=== PATIENT | female | born 1945 | race Caucasian/White ===

== ENCOUNTER 2022-06-21 20:02 | Inpatient (IN) | payer OTHER ==
[~2022-06-21] VITALS: Ht 149.9 cm; Wt 78.0 kg
[2022-06-21 22:13] LABS: Basophils # (auto) 0.1 10 ^3/uL (0-0.2); Basophils % (auto) 0.4 % (0.0-2.0); Eosinophils # (auto) 0.2 10 ^3/uL (0-0.8); Eosinophils % (auto) 0.8 % (0.0-7.0); Hematocrit 38.7 % (36.0-46.0); Hemoglobin 12.3 g/dL (12.2-16.2); Lymphocytes % (auto) 10.3 % (10.0-50.0); Mean Corpuscular Hemoglobin 26.4 pg (28.0-32.0); Mean Corpuscular Hgb Conc. 31.7 g/dL (32.0-36.0); Mean Corpuscular Volume 83.5 fL (80.0-100.0); Monocytes # (auto) 0.7 10 ^3/uL (0-1.3); Monocytes % (auto) 3.8 % (0.0-12.0); Neutrophils # (auto) 16.6 10 ^3/uL (1.6-8.6); Neutrophils % (auto) 84.7 % (37.0-80.0); Nucleated Red Blood Cells % 0.1 %; Red Blood Cells 4.64 10^6/uL (4.0-5.20); Red Cell Distribution Width 15.1 % (11.8-14.3); White Blood Cell 19.6 10^3/uL (4.4-10.8)
[2022-06-21 22:24] LABS: Calcium 9.3 mg/dL (8.5-10.1); Potassium 4.2 mmol/L (3.5-5.1)
[2022-06-21 22:28] LABS: Albumin 3.3 g/dL (3.4-5.0); BUN/Creatinine Ratio 19.2
[2022-06-21 22:32] LABS: Urine Bacteria MANY /hpf (None Seen); Urine Blood TRACE /uL (Negative); Urine Mucus FEW (None Seen); Urine WBC 17 /hpf (0 - 5)
[2022-06-21 22:40] LABS: Bilirubin, Total 0.8 mg/dL (0.2-1.0); Total Protein 6.7 g/dL (6.4-8.2)
[2022-06-21] MEDS ORDERED: cefTRIAXone 1GM/50ML D5W 50 ML IV ONE (23:00)
[2022-06-21] MEDS ORDERED: PANTOPRAZOLE 80 MG in SODIUM CHL 0.9% 100 ML IV ONE (23:00)
[2022-06-21] MEDS ORDERED: PANTOPRAZOLE 40mg/50ML NS AE 50 ML IV ONE (23:00)
[2022-06-21] MEDS ORDERED: PANTOPRAZOLE 40 MG/10 ML VIAL INJ IV ONE (23:26)
[2022-06-22] MEDS ORDERED: NITROGLYCERIN 0.4 MG SL TAB SL PRN (02:30)
[2022-06-22] MEDS ORDERED: SODIUM CHLORIDE 0.9% 1,000 ML IV SCH (02:30)
[2022-06-22] MEDS ORDERED: MORPHINE SULFATE INJ 2 MG/ml SYRG IV PRN (02:30)
[2022-06-22] MEDS: ONDANSETRON HCL 4 MG/2 ML VIAL IV PRN ×3 (03:32→20:09)
[2022-06-22 05:04] LABS: Hematocrit 41.6 % (36.0-46.0); Hemoglobin 13.7 g/dL (12.2-16.2)
[2022-06-22 05:06] LABS: Lactic Acid w/Reflex 2.2 mmol/L (0.4-2.0)
[2022-06-22 05:37] LABS: INR 1.17 (0.9-1.15); Partial Thromboplastin Time 26.5 sec (24.6-33.4)
[2022-06-22] MEDS: metroNIDAZOLE 500MG/100ML 100 ML IV SCH ×3 (06:21→23:11)
[2022-06-22] MEDS: PANTOPRAZOLE 40 MG/10 ML VIAL INJ IV SCH ×2 (09:15→22:00)
[2022-06-22] MEDS: MORPHINE SULFATE INJ 2 MG/ml SYRG IV PRN ×2 (09:48→20:09)
[2022-06-22] MEDS ORDERED: FLUT110A INH (21:15)
[2022-06-22] MEDS ORDERED: OMEP20TA PO (21:15)
[2022-06-22] MEDS ORDERED: LISI2.5T47 PO (21:15)
[2022-06-22] MEDS ORDERED: ATOR20TA50 PO (21:15)
[2022-06-22] MEDS ORDERED: TIOTCAP IN (21:15)
[2022-06-22] MEDS ORDERED: SILD50TA42 PO (21:15)
[2022-06-22] MEDS ORDERED: ATE50T PO (21:15)
[2022-06-22 22:00] VITALS: BP 101/51
[2022-06-22] MEDS: cefTRIAXone 1GM/50ML D5W 50 ML IV SCH (23:10)
[2022-06-23] MEDS ORDERED: ALBUAER3 IN (01:20)
[2022-06-23 05:00] VITALS: BP 114/55
[2022-06-23 05:30] LABS: Basophils # (auto) 0 10 ^3/uL (0-0.2); Basophils % (auto) 0.3 % (0.0-2.0); Eosinophils # (auto) 0 10 ^3/uL (0-0.8); Eosinophils % (auto) 0.1 % (0.0-7.0); Hematocrit 32.3 % (36.0-46.0); Hemoglobin 10.7 g/dL (12.2-16.2); Lymphocytes % (auto) 22.3 % (10.0-50.0); Mean Corpuscular Hemoglobin 27.6 pg (28.0-32.0); Mean Corpuscular Hgb Conc. 33.3 g/dL (32.0-36.0); Monocytes # (auto) 0.9 10 ^3/uL (0-1.3); Monocytes % (auto) 10.5 % (0.0-12.0); Neutrophils # (auto) 5.9 10 ^3/uL (1.6-8.6); Neutrophils % (auto) 66.8 % (37.0-80.0); Red Blood Cells 3.89 10^6/uL (4.0-5.20); Red Cell Distribution Width 15.4 % (11.8-14.3); White Blood Cell 8.8 10^3/uL (4.4-10.8)
[2022-06-23 05:55] LABS: Albumin 2.6 g/dL (3.4-5.0); BUN/Creatinine Ratio 12.2; Calcium 8.5 mg/dL (8.5-10.1); Magnesium 1.9 mg/dL (1.6-2.6); Potassium 4.7 mmol/L (3.5-5.1)
[2022-06-23 05:57] LABS: Bilirubin, Total 0.8 mg/dL (0.2-1.0); Total Protein 5.6 g/dL (6.4-8.2)
[2022-06-23] MEDS: metroNIDAZOLE 500MG/100ML 100 ML IV SCH ×2 (06:01→14:32)
[2022-06-23 09:00] VITALS: BP 120/67
[2022-06-23] MEDS: PANTOPRAZOLE 40 MG/10 ML VIAL INJ IV SCH ×2 (09:28→21:41)
[2022-06-23] MEDS ORDERED: CLINIMIX PER PHARMACY 0 ML IV SCH (11:30)
[2022-06-23] MEDS: D5W/SOD CHLO 0.9% 1,000 ML IV SCH (11:41)
[2022-06-23 13:00] VITALS: BP 129/79
[2022-06-23] MEDS ORDERED: SODIUM BICARBONATE 8.4 % INJ 50ML VIAL IV ONE (13:00)
[2022-06-23 13:10] LABS: Urine Bacteria MOD /hpf (None Seen); Urine Blood 3+ /uL (Negative); Urine Budding Yeast LOADED /hpf (None Seen); Urine Hyaline Cast FEW /lpf (0 - 2); Urine Mucus FEW (None Seen); Urine Specific Gravity 1.017 (1.001-1.035); Urine WBC 32 /hpf (0 - 5)
[2022-06-23 13:17] LABS: Protein, Urine 243.4 mg/dL (0.0-11.9)
[2022-06-23 17:00] VITALS: BP 143/65
[2022-06-23] MEDS: InsuLIN REG 1unit/0.01ml Soln (100units/ml) SC SCH (17:32)
[2022-06-23] MEDS: ACCU-CHEK COMFORT CURVE STRIP VI SCH (17:32)
[2022-06-23] MEDS ORDERED: DEXTROSE (50%) 50ML SYRG IV SCH (18:00)
[2022-06-23] MEDS: CLINIMIX PER PHARMACY IV NR (20:38)
[2022-06-23] MEDS: cefTRIAXone 1GM/50ML D5W 50 ML IV SCH (21:42)
[2022-06-23] MEDS: metroNIDAZOLE 500 MG TAB PO SCH (21:42)
[2022-06-24] VITALS (7 sets, daily range): BP systolic 129–186; BP diastolic 69–79
[2022-06-24] MEDS: ACCU-CHEK COMFORT CURVE STRIP VI SCH ×4 (00:32→18:35)
[2022-06-24] MEDS: D5W/SOD CHLO 0.9% 1,000 ML IV SCH (03:55)
[2022-06-24] MEDS: MORPHINE SULFATE INJ 2 MG/ml SYRG IV PRN ×2 (04:04→22:12)
[2022-06-24 05:54] LABS: Basophils # (auto) 0 10 ^3/uL (0-0.2); Basophils % (auto) 0.5 % (0.0-2.0); Eosinophils # (auto) 0.3 10 ^3/uL (0-0.8); Eosinophils % (auto) 4.3 % (0.0-7.0); Hematocrit 30.1 % (36.0-46.0); Hemoglobin 9.9 g/dL (12.2-16.2); Lymphocytes # (auto) 1.7 10 ^3/uL (0.4-5.4); Lymphocytes % (auto) 22.7 % (10.0-50.0); Mean Corpuscular Hemoglobin 26.8 pg (28.0-32.0); Mean Corpuscular Hgb Conc. 32.9 g/dL (32.0-36.0); Mean Corpuscular Volume 81.6 fL (80.0-100.0); Monocytes # (auto) 0.6 10 ^3/uL (0-1.3); Monocytes % (auto) 8.2 % (0.0-12.0); Neutrophils # (auto) 4.7 10 ^3/uL (1.6-8.6); Neutrophils % (auto) 64.3 % (37.0-80.0); Red Blood Cells 3.69 10^6/uL (4.0-5.20); White Blood Cell 7.4 10^3/uL (4.4-10.8)
[2022-06-24] MEDS: InsuLIN REG 1unit/0.01ml Soln (100units/ml) SC SCH ×4 (06:00→18:35)
[2022-06-24 06:08] LABS: Potassium 3.7 mmol/L (3.5-5.1)
[2022-06-24 06:17] LABS: INR 1.03 (0.9-1.15); Partial Thromboplastin Time 29.8 sec (24.6-33.4)
[2022-06-24 06:23] LABS: Albumin 2.3 g/dL (3.4-5.0); BUN/Creatinine Ratio 14.8; Bilirubin, Total 0.6 mg/dL (0.2-1.0); Calcium 7.8 mg/dL (8.5-10.1); Magnesium 1.7 mg/dL (1.6-2.6); Phosphorus 2.8 mg/dL (2.5-4.90)
[2022-06-24] MEDS: metroNIDAZOLE 500 MG TAB PO SCH ×3 (06:57→21:42)
[2022-06-24] MEDS: PANTOPRAZOLE 40 MG/10 ML VIAL INJ IV SCH ×2 (09:09→22:10)
[2022-06-24] MEDS: SODIUM BICARB 50ML SYR 50 ML in D5W/SOD CHL 0.45% 1,000 ML IV SCH ×2 (11:51→23:44)
[2022-06-24] MEDS ORDERED: POTASSIUM PHOSPHATE 22 MEQ in SODIUM CHL 0.9% 100 ML IV ONE (13:00)
[2022-06-24] MEDS: MESALAMINE 400mg Delayed Release Cap PO SCH (21:43)
[2022-06-24] MEDS: methylPREDNISolone SOD SUCC 40 MG/ML VL IV SCH (22:10)
[2022-06-24] MEDS: cefTRIAXone 1GM/50ML D5W 50 ML IV SCH (22:11)
[2022-06-24] MEDS: CLINIMIX PER PHARMACY IV NR (23:44)
[2022-06-25] MEDS ORDERED: LABETALOL HCL 5 MG/ML 4ML SYRINGE IV ONE (01:15)
[2022-06-25 05:00] VITALS: BP 159/77
[2022-06-25] MEDS: SODIUM BICARB 50ML SYR 50 ML in D5W/SOD CHL 0.45% 1,000 ML IV SCH ×2 (05:45→14:36)
[2022-06-25] MEDS: ACCU-CHEK COMFORT CURVE STRIP VI SCH ×4 (06:00→17:27)
[2022-06-25] MEDS: methylPREDNISolone SOD SUCC 40 MG/ML VL IV SCH ×3 (06:59→23:02)
[2022-06-25] MEDS: metroNIDAZOLE 500 MG TAB PO SCH ×3 (06:59→22:59)
[2022-06-25] MEDS: MESALAMINE 400mg Delayed Release Cap PO SCH ×3 (06:59→23:01)
[2022-06-25] MEDS: InsuLIN REG 1unit/0.01ml Soln (100units/ml) SC SCH ×4 (07:13→17:27)
[2022-06-25 07:39] LABS: Albumin 2.4 g/dL (3.4-5.0); Potassium 3.6 mmol/L (3.5-5.1)
[2022-06-25 07:44] LABS: BUN/Creatinine Ratio 17.4; Bilirubin, Total 0.4 mg/dL (0.2-1.0); Magnesium 1.4 mg/dL (1.6-2.6); Phosphorus 2.2 mg/dL (2.5-4.90); Total Protein 5.4 g/dL (6.4-8.2)
[2022-06-25 08:35] VITALS: BP 164/73
[2022-06-25] MEDS: PANTOPRAZOLE 40 MG/10 ML VIAL INJ IV SCH ×2 (09:07→23:01)
[2022-06-25 12:31] VITALS: BP 168/78
[2022-06-25] MEDS ORDERED: ATENOLOL 50 MG TAB PO ONE (13:15)
[2022-06-25] MEDS ORDERED: POTASSIUM PHOSP 22MEQ(15MMOLE) in NS 100 ML IV ONE (16:00)
[2022-06-25] MEDS: MAGNESIUM SULFATE 1GM/100ML 100 ML IV SCH ×2 (16:18→17:15)
[2022-06-25 17:07] VITALS: BP 183/66
[2022-06-25] MEDS: hydrALAZINE HCL 20 MG/ML VL IV PRN (17:10)
[2022-06-25] MEDS: IPRATROPIUM BROM 0.5 MG/2.5ML INH SOL NEB SCH (19:33)
[2022-06-25] MEDS: ALBUTEROL SULF 2.5 MG/0.5ML(0.5%) NEB SOLN NEB SCH (19:33)
[2022-06-25 20:00] VITALS: BP 118/78
[2022-06-25] MEDS: CLINIMIX PER PHARMACY IV NR (20:58)
[2022-06-25 22:00] VITALS: BP 118/78
[2022-06-25] MEDS: cefTRIAXone 1GM/50ML D5W 50 ML IV SCH (23:01)
[2022-06-26] MEDS: InsuLIN REG 1unit/0.01ml Soln (100units/ml) SC SCH ×3 (00:11→12:07)
[2022-06-26] MEDS: ACCU-CHEK COMFORT CURVE STRIP VI SCH ×3 (00:17→12:05)
[2022-06-26] MEDS: SODIUM BICARB 50ML SYR 50 ML in D5W/SOD CHL 0.45% 1,000 ML IV SCH ×2 (04:10→17:30)
[2022-06-26 05:00] VITALS: BP 158/66
[2022-06-26 05:26] LABS: Basophils # (auto) 0 10 ^3/uL (0-0.2); Basophils % (auto) 0.1 % (0.0-2.0); Eosinophils # (auto) 0 10 ^3/uL (0-0.8); Hemoglobin 9.9 g/dL (12.2-16.2); Lymphocytes # (auto) 1.1 10 ^3/uL (0.4-5.4); Neutrophils # (auto) 11.9 10 ^3/uL (1.6-8.6)
[2022-06-26 05:29] LABS: Hematocrit 29.4 % (36.0-46.0); Lymphocytes % (auto) 7.8 % (10.0-50.0); Mean Corpuscular Hemoglobin 27.2 pg (28.0-32.0); Mean Corpuscular Hgb Conc. 33.7 g/dL (32.0-36.0); Mean Corpuscular Volume 80.7 fL (80.0-100.0); Monocytes # (auto) 0.5 10 ^3/uL (0-1.3); Monocytes % (auto) 3.6 % (0.0-12.0); Neutrophils % (auto) 88.5 % (37.0-80.0); Red Blood Cells 3.65 10^6/uL (4.0-5.20); Red Cell Distribution Width 14.6 % (11.8-14.3); White Blood Cell 13.5 10^3/uL (4.4-10.8)
[2022-06-26 05:42] LABS: Albumin 2.4 g/dL (3.4-5.0); Calcium 8.2 mg/dL (8.5-10.1); Potassium 3.6 mmol/L (3.5-5.1)
[2022-06-26 05:45] LABS: Magnesium 1.8 mg/dL (1.6-2.6); Phosphorus 1.8 mg/dL (2.5-4.90)
[2022-06-26] MEDS: IPRATROPIUM BROM 0.5 MG/2.5ML INH SOL NEB SCH ×3 (06:11→18:55)
[2022-06-26] MEDS: ALBUTEROL SULF 2.5 MG/0.5ML(0.5%) NEB SOLN NEB SCH ×3 (06:11→18:55)
[2022-06-26] MEDS: methylPREDNISolone SOD SUCC 40 MG/ML VL IV SCH ×3 (06:30→22:02)
[2022-06-26] MEDS: MESALAMINE 400mg Delayed Release Cap PO SCH ×3 (06:31→21:55)
[2022-06-26] MEDS: hydrALAZINE HCL 20 MG/ML VL IV PRN ×2 (06:31→17:30)
[2022-06-26] MEDS: metroNIDAZOLE 500 MG TAB PO SCH ×3 (06:31→21:55)
[2022-06-26] MEDS ORDERED: POTASSIUM PHOSPHATE 26.4 MEQ in SODIUM CHL 0.9% 100 ML IV ONE (08:00)
[2022-06-26 09:00] VITALS: BP 152/61
[2022-06-26] MEDS: PANTOPRAZOLE 40 MG/10 ML VIAL INJ IV SCH ×2 (09:23→22:01)
[2022-06-26] MEDS: ATENOLOL 50 MG TAB PO SCH (09:28)
[2022-06-26 13:05] VITALS: BP 156/69
[2022-06-26 16:26] VITALS: BP 170/84
[2022-06-26] MEDS: cefTRIAXone 1GM/50ML D5W 50 ML IV SCH (22:01)
[2022-06-26 22:09] VITALS: BP 142/73
[2022-06-27 04:58] VITALS: BP 157/76
[2022-06-27] MEDS: methylPREDNISolone SOD SUCC 40 MG/ML VL IV SCH ×2 (05:51→22:55)
[2022-06-27] MEDS: metroNIDAZOLE 500 MG TAB PO SCH ×3 (05:52→22:55)
[2022-06-27] MEDS: MESALAMINE 400mg Delayed Release Cap PO SCH ×3 (05:52→22:55)
[2022-06-27 06:02] LABS: Basophils # (auto) 0 10 ^3/uL (0-0.2); Basophils % (auto) 0.1 % (0.0-2.0); Eosinophils # (auto) 0 10 ^3/uL (0-0.8); Hematocrit 30.5 % (36.0-46.0); Hemoglobin 10.2 g/dL (12.2-16.2); Lymphocytes # (auto) 1.2 10 ^3/uL (0.4-5.4); Mean Corpuscular Hemoglobin 26.6 pg (28.0-32.0); Mean Corpuscular Hgb Conc. 33.4 g/dL (32.0-36.0); Mean Corpuscular Volume 79.4 fL (80.0-100.0); Monocytes # (auto) 0.9 10 ^3/uL (0-1.3); Monocytes % (auto) 7.2 % (0.0-12.0); Neutrophils # (auto) 10.1 10 ^3/uL (1.6-8.6); Neutrophils % (auto) 82.7 % (37.0-80.0); Red Blood Cells 3.84 10^6/uL (4.0-5.20); Red Cell Distribution Width 14.8 % (11.8-14.3); White Blood Cell 12.2 10^3/uL (4.4-10.8)
[2022-06-27] MEDS: ALBUTEROL SULF 2.5 MG/0.5ML(0.5%) NEB SOLN NEB SCH ×3 (06:24→19:46)
[2022-06-27] MEDS: IPRATROPIUM BROM 0.5 MG/2.5ML INH SOL NEB SCH ×3 (06:24→19:46)
[2022-06-27 06:43] LABS: Calcium 8.1 mg/dL (8.5-10.1); Potassium 3.5 mmol/L (3.5-5.1)
[2022-06-27 06:47] LABS: BUN/Creatinine Ratio 24.8; Magnesium 1.2 mg/dL (1.6-2.6); Phosphorus 2.4 mg/dL (2.5-4.90)
[2022-06-27] MEDS: SODIUM BICARB 50ML SYR 50 ML in D5W/SOD CHL 0.45% 1,000 ML IV SCH ×2 (07:36→16:01)
[2022-06-27 09:07] VITALS: BP 159/73
[2022-06-27] MEDS: ATENOLOL 50 MG TAB PO SCH (09:21)
[2022-06-27] MEDS: PANTOPRAZOLE 40 MG/10 ML VIAL INJ IV SCH ×2 (09:24→22:55)
[2022-06-27] MEDS: hydrALAZINE HCL 20 MG/ML VL IV PRN (09:25)
[2022-06-27] MEDS ORDERED: POTASSIUM PHOSPHATE 22 MEQ in SODIUM CHL 0.9% 100 ML IV ONE (10:15)
[2022-06-27] MEDS: MAGNESIUM SULFATE 1GM/100ML 100 ML IV SCH ×2 (11:22→13:34)
[2022-06-27 12:47] VITALS: BP 152/73
[2022-06-27 17:00] VITALS: BP 152/73
[2022-06-27 17:15] VITALS: BP 155/68
[2022-06-27 21:56] VITALS: BP 155/69
[2022-06-27] MEDS: cefTRIAXone 1GM/50ML D5W 50 ML IV SCH (22:55)
[2022-06-28 04:52] VITALS: BP 148/73
[2022-06-28 06:17] LABS: Basophils # (auto) 0 10 ^3/uL (0-0.2); Basophils % (auto) 0.2 % (0.0-2.0); Eosinophils # (auto) 0 10 ^3/uL (0-0.8); Eosinophils % (auto) 0.1 % (0.0-7.0); Hematocrit 29.2 % (36.0-46.0); Hemoglobin 10.1 g/dL (12.2-16.2); Lymphocytes % (auto) 9.8 % (10.0-50.0); Mean Corpuscular Hemoglobin 27.3 pg (28.0-32.0); Mean Corpuscular Hgb Conc. 34.5 g/dL (32.0-36.0); Mean Corpuscular Volume 79.1 fL (80.0-100.0); Monocytes # (auto) 1.3 10 ^3/uL (0-1.3); Monocytes % (auto) 12.4 % (0.0-12.0); Neutrophils # (auto) 7.8 10 ^3/uL (1.6-8.6); Neutrophils % (auto) 77.5 % (37.0-80.0); Red Blood Cells 3.69 10^6/uL (4.0-5.20); Red Cell Distribution Width 15.1 % (11.8-14.3); White Blood Cell 10.1 10^3/uL (4.4-10.8)
[2022-06-28] MEDS: metroNIDAZOLE 500 MG TAB PO SCH (06:28)
[2022-06-28] MEDS: MESALAMINE 400mg Delayed Release Cap PO SCH (06:28)
[2022-06-28 06:33] LABS: BUN/Creatinine Ratio 23.8; Calcium 7.9 mg/dL (8.5-10.1); Potassium 3.9 mmol/L (3.5-5.1)
[2022-06-28] MEDS: IPRATROPIUM BROM 0.5 MG/2.5ML INH SOL NEB SCH (06:54)
[2022-06-28] MEDS: ALBUTEROL SULF 2.5 MG/0.5ML(0.5%) NEB SOLN NEB SCH (06:55)
[2022-06-28 08:52] VITALS: BP 159/73
[2022-06-28 09:00] VITALS: BP 169/80
[2022-06-28] MEDS: methylPREDNISolone SOD SUCC 40 MG/ML VL IV SCH (09:50)
[2022-06-28] MEDS: PANTOPRAZOLE 40 MG/10 ML VIAL INJ IV SCH (09:50)
[2022-06-28] MEDS: ATENOLOL 50 MG TAB PO SCH (09:51)
[2022-06-28] MEDS: hydrALAZINE HCL 20 MG/ML VL IV PRN (10:00)
[2022-06-28] MEDS ORDERED: MAGNESIUM SULFATE 1GM/100ML 100 ML IV SCH (10:00)
== END 2022-06-28 10:20 | disposition short-term general hospital (02) | DRG 391 ==
LOC: EDBD 20:02 → ER 20:04 → TELE 06-22 02:30 → TELE-WESTW 06-22 20:55
PROVIDERS: ADMIT Nurse Practitioner; ATTEND Internal Medicine
PROC: 05HA33Z Insertion of Infusion Device into Left Brachial Vein, Percutaneous Approach (ICD-10-PCS; principal; 2022-06-25)
PROC: B54NZZA Ultrasonography of Left Upper Extremity Veins, Guidance (ICD-10-PCS; 2022-06-25)
DX: K52.9 Noninfective gastroenteritis and colitis, unspecified (principal); N17.0 Acute kidney failure with tubular necrosis; E44.0 Moderate protein-calorie malnutrition; N30.00 Acute cystitis without hematuria; K62.5 Hemorrhage of anus and rectum; R65.10 Systemic inflammatory response syndrome (SIRS) of non-infectious origin without acute organ dysfunction; D64.9 Anemia, unspecified; E66.9 Obesity, unspecified; E78.5 Hyperlipidemia, unspecified; I12.9 Hypertensive chronic kidney disease with stage 1 through stage 4 chronic kidney disease, or unspecified chronic kidney disease; J44.9 Chronic obstructive pulmonary disease, unspecified; N18.9 Chronic kidney disease, unspecified; R97.0 Elevated carcinoembryonic antigen [CEA]; E11.65 Type 2 diabetes mellitus with hyperglycemia; E83.39 Other disorders of phosphorus metabolism; E83.42 Hypomagnesemia; Z68.33 Body mass index [BMI] 33.0-33.9, adult; Z88.2 Allergy status to sulfonamides; Z20.822 Contact with and (suspected) exposure to COVID-19; Z87.19 Personal history of other diseases of the digestive system
CPT/HCPCS: 36415; 36600; 70450; 71045; 74018; 74176; 76775; 80048; 80053; 80069; 81001; 82270; 82378; 82570; 82805; 82962; 83036; 83605; 83735; 83880; 83935; 84100; 84156; 84300; 84443; 84484; 85014; 85018; 85025; 85610; 85730; 86850; 86900; 86901; 87040; 87045; 87086; 87088; 87426; 87427; 87493; 93005; 94640; 96365; 96374; 96375; 97110; 97116; 97163; C9113; G0378; J0696; J1815; J2405; J3490; J7042

== ENCOUNTER 2025-03-02 04:29 | Inpatient (IN) | payer OTHER ==
[~2025-03-02] VITALS: Ht 165.1 cm; Wt 66.0 kg
[~2025-03-02 04:29] MED LIST: ALBUAER3 IN; ATE50T PO; ATOR20TA50 PO; FLUT110A INH; LISI2.5T47 PO; OMEP20TA PO; SILD50TA PO; TIOTCAP IN
--- NOTE | 2025-03-02 04:55 | ED.PDOC ---
GI ASSESSMENT HPI Comments 79 year old female who came to ER by EMS for nausea and vomiting. Per EMS, about an hour prior to arrival, sudden onset right lower quadrant abdominal pain, sharp, constant, nonradiating, associated episodes of nausea, vomiting, dizziness/lightheadedness. Blood pressure on scene was 53/33 mm Hg. Patient is started on IV fluids. Blood sugar on scene was 253 Chief Complaint: Nausea/Vomiting Time Seen by MD: 04:53 Reviewed Notes: All Purpose Clerk Notes Allergies: Coded Allergies: Sulfa Antibiotics (Verified Allergy, Unknown, 06/21/22) Home Meds Reported Medications Albuterol Sulfate (VENTOLIN MDI) 90 Mcg Ih, 90 MCG IN, INH 06/23/22 Fluticasone Propionate (FLOVENT HFA 110Mcg INH) 110 Mcg Ih, 2 PUFF INH BID, #1 INHALER 2 Refills 06/22/22 Atenolol (TENORMIN TABLET) 50 Mg Tb, 1 TAB PO DAILY, #30 TAB 5 Refills 06/22/22 Atorvastatin Calcium (ATORVASTATIN CALCIUM) 20 Mg Tab, 1 TAB PO DAILY, #30 TAB 5 Refills 06/22/22 Sildenafil Citrate (Viagra) 50 Mg Tab, 1 TAB PO UD, #6 TAB 5 Refills 06/22/22 Lisinopril (Lisinopril) 2.5 Mg Tab, 1 TAB PO DAILY, #30 TAB 5 Refills 06/22/22 Omeprazole (Gnp Omeprazole) 20 Mg Tab, 1 TAB PO DAILY, #90 TAB 1 Refill 06/22/22 Tiotropium Roland Monohydrate (Spiriva Handihaler) 18 Mcg Cap, 18 MCG IN, CAP 06/22/22 Information Source: Emergency Med Personnel Timing: Minutes Duration: Since onset Prehospital treatment: IVF Quality: Sharp Vomitus: Watery Stool: Normal Severity: Moderate Recent: None Recent Hx of: Abdominal Surgery Pain Location: RLQ Associated sign and symptoms: Nausea, Vomiting, Abdominal Pain Review of Systems REVIEW OF SYSTEMS: No fever, no chills, or fatigue HEENT: No sore throat, no earache, no congestion, no neck pain. Cardiac: No chest pain. No palpitations. Lungs: No shortness of breath, no cough. GI: (+) nausea, (+) vomiting, no diarrhea, no constipation, (+) abdominal pain : No dysuria, frequency, or urgency. No hematuria. Musculoskeletal: No joint pain , no joint swelling, no extremity edema. Skin: No rash, no itching. Neuro: No headache, (+) dizziness, no weakness Vital Signs Vital Signs Date Time Temp Pulse Resp B/P (MAP) Pulse Ox O2 Delivery O2 Flow Rate FiO2 03/02/25 06:09 57 15 94 Nasal Cannula* 3 32 03/02/25 06:08 104/57 (73) 03/02/25 05:21 97.8 97.8 Physical Exam General: Awake, alert , appears unwell Skin: Skin in warm, dry and intact. Appropriate color for ethnicity. Nailbeds pink with no cyanosis. HEENT: The head is normocephalic and atraumatic. Conjunctivae are clear without exudates or hemorrhage. Sclera is non-icteric. EOM are intact. No signs of nystagmus. Eyelids are normal in appearance without swelling or lesions. Oral mucosa is pink and moist Neck: The neck is supple with normal range of motion. No JVD. Cardiac: Heart rate and rhythm are normal. No murmurs, gallops, or rubs are auscultated. Respiratory: No signs of respiratory distress. Lung sounds are clear in all lobes bilaterally without rales, rhonchi, or wheezes. Abdominal: Abdomen is soft, +RLQ tender Bowel sounds are present and normoactive in all four quadrants. Extremities: Upper and lower extremities are atraumatic in appearance without deformity or edema. Neurological: The patient is awake, alert and oriented to person, place, and time with normal speech. Speech is clear. There is no facial asymmetry. Psychiatric: Appropriate mood and affect. Good judgement and insight. 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 Was a procedure done?: No GI differential Dx Differential Diagnosis: Cholecystitis, Constipation, Diverticular disease, Gastritis/PUD, Gastroenteritis, Hernia, Ovarian cyst/torsion, UTI, Urolithiasis, Anemia X-Ray, Labs, Meds, VS Vital Signs Date Time Temp Pulse Resp B/P (MAP) Pulse Ox O2 Delivery O2 Flow Rate FiO2 03/02/25 06:09 57 15 94 Nasal Cannula* 3 32 03/02/25 06:08 60 104/57 (73) 100 03/02/25 05:21 97.8 57 15 97/35 (55) 93 97.8 03/02/25 05:14 56 03/02/25 04:40 98.2 73 20 55/33 (40) 97 98.2 Lab Test 03/02/25 07:34 03/02/25 05:54 03/02/25 05:44 Range/Units Lactic Acid Level Pending 5.9 *H 0.4-2.0 mmol/L Troponin I High Sensitivity Pending 38 *H </=34 ng/L White Blood Count 17.7 H 4.4-10.8 10^3/uL Red Blood Count 4.47 4.0-5.20 10^6/uL Hemoglobin 10.4 L 12.2-16.2 g/dL Hematocrit 35.2 L 36.0-46.0 % Mean Corpuscular Volume 78.6 L 80.0-100.0 fL Mean Corpuscular Hemoglobin 23.2 L 28.0-32.0 pg Mean Corpuscular Hemoglobin Concent 29.5 L 32.0-36.0 g/dL Red Cell Distribution Width 16.6 H 11.8-14.3 % Platelet Count 252 140-450 10^3/uL Mean Platelet Volume 8.1 6.9-10.8 fL Neutrophils (%) (Auto) 37.0-80.0 % Lymphocytes (%) (Auto) 10.0-50.0 % Monocytes (%) (Auto) 0.0-12.0 % Basophils (%) (Auto) 0.0-2.0 % Neutrophils # (Auto) 1.6-8.6 10 ^3/uL Lymphocytes # (Auto) 0.4-5.4 10 ^3/uL Monocytes # (Auto) 0-1.3 10 ^3/uL Differential Total Cells Counted 100.0 100 Neutrophils % (Manual) 93 H 37.0-80.0 Band Neutrophils % (Manual) 1 Lymphocytes % (Manual) 5 L 10.0-50.0 Monocytes % (Manual) 1 0-12 Eosinophils % (Manual) 0 0-7 Basophils % (Manual) 0 0.0-2.0 Metamyelocytes % (manual) 0 Myelocytes % (Manual) 0 Promyelocytes % (Manual) 0 Blast Cells % (Manual) 0 Reactive Lymphocytes 0 Platelet Estimate Adequate Hypochromasia (manual) Slight Microcytosis Slight Sodium Level 140 136-145 mmol/L Potassium Level 4.4 3.5-5.1 mmol/L Chloride Level 110 H 98-107 mmol/L Carbon Dioxide Level 15 L 20-31 mmol/L Anion Gap 15 5-15 Blood Urea Nitrogen 26 H 9-23 mg/dL Creatinine 1.84 H 0.550-1.02 mg/dL Glomerular Filtration Rate Calc 27 >90 mL/min BUN/Creatinine Ratio 14.1 10.0-20.0 Serum Glucose 171 H 74-106 mg/dL Calcium Level 9.4 8.7-10.4 mg/dL Total Bilirubin 0.7 0.2-1.0 mg/dL Aspartate Amino Transferase (AST) 24 0-34 U/L Alanine Aminotransferase (ALT) < 9 7-40 U/L Alkaline Phosphatase 390 H 46-116 U/L Total Protein 7.1 5.7-8.2 g/dL Albumin 3.8 3.2-4.8 g/dL Lipase 78 H 12-53 U/L Current Medications Medications (Trade) Dose Ordered Sig/Sara Route Start Time Stop Time Status Last Admin Sodium Chloride 1,000 ml @ 1,000 mls/hr Q1H ONCE IV 03/02/25 04:45 03/02/25 05:44 DC 03/02/25 05:14 EXAM: CT Abdomen and Pelvis Without Intravenous Contrast CLINICAL INDICATION: Pain TECHNIQUE: Axial computed tomography images of the abdomen and pelvis without intravenous contrast. This CT exam was performed using one or more of the following dose reduction techniques: automated exposure control, adjustment of the mA and/or kV according to patient size, and/or use of iterative reconstruction technique. COMPARISON: No relevant prior studies available. FINDINGS: LUNG BASES: Unremarkable. No mass. No consolidation. MEDIASTINUM: Small esophageal hiatal hernia. ABDOMEN: LIVER: Fatty infiltration of the liver. GALLBLADDER AND BILE DUCTS: Unremarkable. No calcified stones. No ductal dilation. PANCREAS: Unremarkable. No ductal dilation. SPLEEN: Unremarkable. No splenomegaly. ADRENALS: Unremarkable. No mass. KIDNEYS AND URETERS: Punctate left nephrolithiasis without hydronephrosis. STOMACH AND BOWEL: Fecal retention in the colon consistent with constipation. Evidence of prior gastric surgery. Colonic diverticulosis without acute diverticulitis. PELVIS: APPENDIX: No findings to suggest acute appendicitis. BLADDER: Unremarkable. No stones. REPRODUCTIVE: Unremarkable as visualized. ABDOMEN and PELVIS: INTRAPERITONEAL SPACE: See below. BONES/JOINTS: Mildly distended small bowel with air-fluid levels. Correlation for arthritis is recommended. No bowel obstruction or pneumoperitoneum. Degenerative disc disease throughout the lumbar spine. Degenerative facet arthropathy throughout the lumbar spine, most prominent in the lower lumbar spine. No acute fracture. No dislocation. SOFT TISSUES: Unremarkable. VASCULATURE: Scattered calcified atherosclerotic disease of aorta. No abdominal aortic aneurysm. LYMPH NODES: Unremarkable. No enlarged lymph nodes. IMPRESSION: 1. Mildly distended small bowel with air-fluid levels. Correlation for arthritis is recommended. No bowel obstruction or pneumoperitoneum. 2. Small esophageal hiatal hernia. 3. Fecal retention in the colon consistent with constipation. 4. Punctate left nephrolithiasis without hydronephrosis. 5. Colonic diverticulosis without acute diverticulitis. 6. Degenerative changes lumbar spine as described. EXAM: XR Chest, 1 View CLINICAL INDICATION: Pain TECHNIQUE: Frontal view of the chest. COMPARISON: No relevant prior studies available. FINDINGS: LUNGS AND PLEURAL SPACES: Unremarkable. No consolidation. No pneumothorax. HEART: Unremarkable. No cardiomegaly. MEDIASTINUM: Unremarkable. Normal mediastinal contour. BONES/JOINTS: Unremarkable. No acute fracture. IMPRESSION: No acute cardiopulmonary process. Time of 1ST Reevaluation: 04:50 Reevaluation 1ST: Unchanged Patient Education/Counseling: Prognosis Family Education/Counseling: No Family Present Sepsis Sepsis Reasesment Focused Exam Orders: Laboratory Tests 03/02/25 05:44: Lactic Acid Level 5.9 03/02/25 07:34: Departure 1 Departure Time of Disposition: 08:07 ([facility] authorization to admit here [id number]. Discussed with Dr. Molina at [facility] who agreed that patient is unstable for transfer.Patient with concern for sepsis. We will empirically cover patient with antibiotics fluids and admit patient for further workup and expert consultation) Impression: Primary Impression: Sepsis Qualified Codes: A41.9 - Sepsis, unspecified organism; R65.21 - Severe sepsis with septic shock; G72.81 - Critical illness myopathy Additional Impression: Colitis Disposition: ADMITTED INPATIENT Admit to: Med Surg Condition: Serious Critical Care Note Critical Care Time?: Yes Critical care comment: Hypotension, hyperglycemia Authorized and Performed by: Pj Clancy MD Total critical care time: Approximately 78 minutes Due to a high probability of clinically significant, life threatening deterioration, the patient required my highest level of preparedness to intervene emergently and I personally spent this critical care time directly and personally managing the patient. This critical care time included obtaining a history; examining the patient; pulse oximetry; ordering and review of studies; arranging urgent treatment with development of a management plan; evaluation of patient's response to treatment; frequent reassessment; and, discussions with other providers. This critical care time was performed to assess and manage the high probability of imminent, life-threatening deterioration that could result in multi-organ failure. It was exclusive of separately billable procedures and treating other patients and teaching time. Please see my other sections and the rest of the note for further information on patient assessment and treatment. Stability Stability form required: No Heart Score Heart Score: Heart Score Response (Comments) Value History N/A 0 EKG N/A 0 Age N/A 0 Risk Factors N/A 0 Troponin N/A 0 Total 0 I personally scribed for TANNER NELSON MD ([email or web address]) on 03/02/25 at 04:55. Electronically submitted by Thierry Marquez ([email or web address]). I personally scribed for TANNER NELSON MD ([email or web address]) on 03/02/25 at 06:01. Electronically submitted by Thierry Marquez ([email or web address]). TANNER NELSON MD Mar 02, 2025 04:55 PJ CLANCY MD Mar 02, 2025 08:09
[2025-03-02] MEDS: SODIUM CHLORIDE 0.9% 1,000 ML IV ONE ×4 (05:14→11:21)
--- NOTE | 2025-03-02 05:42 | DVH ---
EXAM: XR Chest, 1 View CLINICAL INDICATION: Pain TECHNIQUE: Frontal view of the chest. COMPARISON: No relevant prior studies available. FINDINGS: LUNGS AND PLEURAL SPACES: Unremarkable. No consolidation. No pneumothorax. HEART: Unremarkable. No cardiomegaly. MEDIASTINUM: Unremarkable. Normal mediastinal contour. BONES/JOINTS: Unremarkable. No acute fracture. IMPRESSION: No acute cardiopulmonary process.
--- NOTE | 2025-03-02 05:49 | DVH ---
EXAM: CT Abdomen and Pelvis Without Intravenous Contrast CLINICAL INDICATION: Pain TECHNIQUE: Axial computed tomography images of the abdomen and pelvis without intravenous contrast. This CT exam was performed using one or more of the following dose reduction techniques: automated exposure control, adjustment of the mA and/or kV according to patient size, and/or use of iterative r econstruction technique. COMPARISON: No relevant prior studies available. FINDINGS: LUNG BASES: Unremarkable. No mass. No consolidation. MEDIASTINUM: Small esophageal hiatal hernia. ABDOMEN: LIVER: Fatty infiltration of the liver. GALLBLADDER AND BILE DUCTS: Unremarkable. No calcified stones. No ductal dilation. PANCREAS: Unremarkable. No ductal dilation. SPLEEN: Unremarkable. No splenomegaly. ADRENALS: Unremarkable. No mass. KIDNEYS AND URETERS: Punctate left nephrolithiasis without hydronephrosis. STOMACH AND BOWEL: Fecal retention in the colon consistent with constipation. Evidence of prior gas tric surgery. Colonic diverticulosis without acute diverticulitis. PELVIS: APPENDIX: No findings to suggest acute appendicitis. BLADDER: Unremarkable. No stones. REPRODUCTIVE: Unremarkable as visualized. ABDOMEN and PELVIS: INTRAPERITONEAL SPACE: See below. BONES/JOINTS: Mildly distended small bowel with air-fluid levels. Correlation for arthritis is [place] mmended. No bowel obstruction or pneumoperitoneum. Degenerative disc disease throughout the lumbar spine. Degenerative facet arthropathy throughout the lumbar spine, most prominent in the lower lumba r spine. No acute fracture. No dislocation. SOFT TISSUES: Unremarkable. VASCULATURE: Scattered calcified atherosclerotic disease of aorta. No abdominal aortic aneurysm. LYMPH NODES: Unremarkable. No enlarged lymph nodes. IMPRESSION: 1. Mildly distended small bowel with air-fluid levels. Correlation for arthritis is recommended. N o bowel obstruction or pneumoperitoneum. 2. Small esophageal hiatal hernia. 3. Fecal retention in the colon consistent with constipation. 4. Punctate left nephrolithiasis without hydronephrosis. 5. Colonic diverticulosis without acute diverticulitis. 6. Degenerative changes lumbar spine as described.
[2025-03-02 06:09] VITALS: PULSE 57; RESP 15; O2SAT 94
[2025-03-02 06:20] LABS: Hemoglobin 10.4 g/dL (12.2-16.2); Mean Corpuscular Volume 78.6 fL (80.0-100.0)
[2025-03-02 06:21] LABS: Hematocrit 35.2 % (36.0-46.0); Mean Corpuscular Hemoglobin 23.2 pg (28.0-32.0); Mean Corpuscular Hgb Conc. 29.5 g/dL (32.0-36.0); Platelet Count (auto) 252 10^3/uL (140-450); Red Blood Cells 4.47 10^6/uL (4.0-5.20); Red Cell Distribution Width 16.6 % (11.8-14.3); White Blood Cell 17.7 10^3/uL (4.4-10.8)
[2025-03-02 06:26] LABS: Basophils % (manual) 0 (0.0-2.0); Blast Cells 0; Eosinophils % (manual) 0 (0-7); Metamyelocytes % 0; Myelocytes % 0; Promyelocytes % 0; Reactive Lymphocytes 0
[2025-03-02 06:32] LABS: Albumin 3.8 g/dL (3.2-4.8); Anion Gap 15 (5-15); Aspartate Aminotransferase 24 U/L (0-34); BUN/Creatinine Ratio 14.1 (10.0-20.0); Calcium 9.4 mg/dL (8.7-10.4); Potassium 4.4 mmol/L (3.5-5.1); Sodium 140 mmol/L (136-145); Total Protein 7.1 g/dL (5.7-8.2)
[2025-03-02 06:33] LABS: Bilirubin, Total 0.7 mg/dL (0.2-1.0)
[2025-03-02 06:34] LABS: Alanine Aminotransferase < 9 U/L (7-40); Alkaline Phosphatase 390 U/L (46-116); Blood Urea Nitrogen 26 mg/dL (9-23); Carbon Dioxide 15 mmol/L (20-31); Chloride 110 mmol/L (98-107); Glucose 171 mg/dL (74-106); Lipase 78 U/L (12-53)
[2025-03-02 06:52] LABS: Band Neutrophils % (manual) 1; Lymphocytes % (manual) 5 (10.0-50.0); Monocytes % (manual) 1 (0-12)
[2025-03-02 06:53] LABS: Hypochromia Slight; Platelet Estimate Adequate
[2025-03-02 07:03] LABS: Lactic Acid w/Reflex 5.9 mmol/L (0.4-2.0)
[2025-03-02 08:07] VITALS: PULSE 60; RESP 14; O2SAT 95
[2025-03-02] MEDS: CEFEPIME 2GM/50ML NS 50 ML IV ONE (08:20)
[2025-03-02] MEDS: VANCOMYCIN 1GM/200ML PM 200 ML IV ONE (09:20)
[2025-03-02] MEDS ORDERED: METOCLOPRAMIDE HCL 5MG/ml INJ 2ml VIAL IV PRN (11:00)
[2025-03-02] MEDS ORDERED: HYDROcodone-ACET 5/325MG TAB PO PRN (11:00)
[2025-03-02] MEDS ORDERED: MORPHINE SULFATE INJ 2 MG/ml SYRG IV PRN (11:00)
[2025-03-02] MEDS ORDERED: VANCOMYCIN PER PHARMACY 0 MG IV SCH (11:00)
[2025-03-02] MEDS ORDERED: NITROGLYCERIN 0.4 MG SL TAB SL PRN (11:00)
[2025-03-02] MEDS ORDERED: ASPI1TAB20 PO (11:10)
[2025-03-02] MEDS ORDERED: LISI10TA34 PO (11:10)
[2025-03-02] MEDS: ONDANSETRON HCL 4 MG/2 ML VIAL IV PRN (11:15)
[2025-03-02] MEDS: MORPHINE SULFATE INJ 2 MG/ml SYRG IV PRN (11:15)
[2025-03-02 11:17] LABS: Urine Bacteria MOD /hpf (None Seen); Urine Blood Negative /uL (Negative); Urine Clarity Turbid (Clear); Urine Protein, UAD 1+ (Negative); Urine Specific Gravity 1.024 (1.001-1.035); Urine Squamous Epithelial Cell FEW /hpf (<5); Urine Urobilinogen 8 mg/dL (Negative); Urine WBC 36 /HPF (0-5); Urine pH 5.5 (5.0-9.0)
--- NOTE | 2025-03-02 11:21 | DVHHP2 ---
History of Present Illness Reason for Visit: Nausea, vomiting, diarrhea History of Present Illness Leeanna Mitchell is an 79-year-old female with past medial history of hypertension, hyperlipidemia, GERD, asthma, pulmonary hypertension, and chronic kidney disease who came to the hospital for intractable nausea, vomiting, and di arrhea. Patient states yesterday she last ate when she went with her daughter to [employer] for dinner. 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 While in the ER she was found to have elevated troponin, lactic acidosis, and hypotension. Patient denies any chest pain or shortness of breath. Patient will be admitted for further treatment. Cardiovascular: HTN, hyperipidemia Pulmonary: Asthma, Other (pulmonary hypertension) GI: GERD Renal/: Chronic renal insuff Past Surgical History: Appendectomy, Hernia Repair Smoke: No ALCOHOL: none Drugs: None Lives: with Family Domestic Violence: Neg Review of Systems Constitutional: Yes: Weakness, Malaise; No: Fever, Chills, Sweats, Other Eyes: No: Pain, Vision change, Conjunctivae inflammation, Eyelid inflammation, Other, Redness ENT: No: Ear pain, Ear discharge, Nose pain, Nose discharge, Nose congestion, Mouth pain, Mouth swelling, Throat pain, Throat swelling, Other Respiratory: No: Cough, Dry, Shortness of breath, SOB with excertion, Wheezing, Hemoptysis, Pleuritic Pain, Sputum, Wheezing, Other Cardiovascular: No: Chest Pain, Palpitations, Orthopnea, Paroxysmal Noc. Dyspnea, Edema, Lt Headedness, Other Gastrointestinal: Nausea, Vomiting, Abdominal Pain, Diarrhea; No: Constipation, Melena, Hematochezia, Other Genitourinary: No Dysuria, No Frequency, No Incontinence, No Hematuria, No Retention, No Other Musculoskeletal: No: other, neck pain, shoulder pain, arm pain, back pain, hand pain, leg pain, foot pain Skin: No: Rash, Lesions, Jaundice, Bruising, Other Neurological: No: Weakness, Numbness, Incoordination, Change in speech, Confusion, Seizures, Other Allergies: Coded Allergies: Sulfa Antibiotics (Verified Allergy, Unknown, 06/21/22) Medications Current Medications Medications Dose Ordered Sig/Sara Route Start Time Stop Time Status Last Admin Dose Admin Acetaminophen/ Hydrocodone Bitart 1 tab Q4HP PRN PO 03/02/25 11:00 UNV Ondansetron HCl 4 mg Q4HP PRN IV 03/02/25 11:00 UNV Acetaminophen 650 mg Q6HP PRN PO 03/02/25 11:00 UNV Morphine Sulfate 2 mg Q4HPRN PRN IV 03/02/25 11:00 UNV Nitroglycerin 0.4 mg Q5MINP PRN SL 03/02/25 11:00 UNV Morphine Sulfate 2 mg Q30M PRN IV 03/02/25 11:00 UNV Metoclopramide HCl 10 mg Q6HPRN PRN IV 03/02/25 11:00 UNV Vancomycin HCl 0 ml @ 0 mls/hr UD IV 03/02/25 11:00 UNV Cefepime HCl 50 ml @ 12.5 mls/hr DAILY IV 03/03/25 10:00 UNV Exam Vital Signs Vital Signs Date Time Temp Pulse Resp B/P (MAP) Pulse Ox O2 Delivery O2 Flow Rate FiO2 03/02/25 08:07 60 14 95 Room Air* 0 21 03/02/25 08:00 97.8 117/63 (81) 97.8 General Appearance: Alert, Oriented X3, Cooperative, moderate distress HEENT: Atraumatic, PERRLA Respiratory: Clear to auscultation, Normal air movement Cardiovascular: Regular rate, Normal S1, Normal S2 Abdominal: Normal bowel sounds, Soft, Other (RLQ pain, nausea and vomiting) Extremities: No clubbing, No cyanosis, No edema, Normal pulses Skin: No rashes, No breakdown, No significant lesion Neuro: Normal gait, Normal speech, Strength at 5/5 X4 ext, Normal tone Psych/Mental Status: Mental status NL, Mood NL Labs/Xrays Labs Test 03/02/25 10:45 03/02/25 08:54 03/02/25 07:34 03/02/25 05:54 Range/Units Troponin I High Sensitivity 507 *H </=34 ng/L Lactic Acid Level 5.1 *H 0.4-2.0 mmol/L White Blood Count 17.7 H 4.4-10.8 10^3/uL Red Blood Count 4.47 4.0-5.20 10^6/uL Hemoglobin 10.4 L 12.2-16.2 g/dL Hematocrit 35.2 L 36.0-46.0 % Mean Corpuscular Volume 78.6 L 80.0-100.0 fL Mean Corpuscular Hemoglobin 23.2 L 28.0-32.0 pg Mean Corpuscular Hemoglobin Concent 29.5 L 32.0-36.0 g/dL Red Cell Distribution Width 16.6 H 11.8-14.3 % Platelet Count 252 140-450 10^3/uL Mean Platelet Volume 8.1 6.9-10.8 fL Neutrophils (%) (Auto) 37.0-80.0 % Lymphocytes (%) (Auto) 10.0-50.0 % Monocytes (%) (Auto) 0.0-12.0 % Basophils (%) (Auto) 0.0-2.0 % Neutrophils # (Auto) 1.6-8.6 10 ^3/uL Lymphocytes # (Auto) 0.4-5.4 10 ^3/uL Monocytes # (Auto) 0-1.3 10 ^3/uL Differential Total Cells Counted 100.0 100 Neutrophils % (Manual) 93 H 37.0-80.0 Band Neutrophils % (Manual) 1 Lymphocytes % (Manual) 5 L 10.0-50.0 Monocytes % (Manual) 1 0-12 Eosinophils % (Manual) 0 0-7 Basophils % (Manual) 0 0.0-2.0 Metamyelocytes % (manual) 0 Myelocytes % (Manual) 0 Promyelocytes % (Manual) 0 Blast Cells % (Manual) 0 Reactive Lymphocytes 0 Platelet Estimate Adequate Hypochromasia (manual) Slight Microcytosis Slight Sodium Level 140 136-145 mmol/L Potassium Level 4.4 3.5-5.1 mmol/L Chloride Level 110 H 98-107 mmol/L Carbon Dioxide Level 15 L 20-31 mmol/L Anion Gap 15 5-15 Blood Urea Nitrogen 26 H 9-23 mg/dL Creatinine 1.84 H 0.550-1.02 mg/dL Glomerular Filtration Rate Calc 27 >90 mL/min BUN/Creatinine Ratio 14.1 10.0-20.0 Serum Glucose 171 H 74-106 mg/dL Calcium Level 9.4 8.7-10.4 mg/dL Total Bilirubin 0.7 0.2-1.0 mg/dL Aspartate Amino Transferase (AST) 24 0-34 U/L Alanine Aminotransferase (ALT) < 9 7-40 U/L Alkaline Phosphatase 390 H 46-116 U/L Total Protein 7.1 5.7-8.2 g/dL Albumin 3.8 3.2-4.8 g/dL Lipase 78 H 12-53 U/L EXAM: CT Abdomen and Pelvis Without Intravenous Contrast FINDINGS: LUNG BASES: Unremarkable. No mass. No consolidation. MEDIASTINUM: Small esophageal hiatal hernia. ABDOMEN: LIVER: Fatty infiltration of the liver. GALLBLADDER AND BILE DUCTS: Unremarkable. No calcified stones. No ductal dil ation. PANCREAS: Unremarkable. No ductal dilation. SPLEEN: Unremarkable. No splenomegaly. ADRENALS: Unremarkable. No mass. KIDNEYS AND URETERS: Punctate left nephrolithiasis without hydronephrosis. STOMACH AND BOWEL: Fecal retention in the colon consistent with constipation. Evidence of prior gastric surgery. Colonic diverticulosis without acute diverticulitis. PELVIS: APPENDIX: No findings to suggest acute appendicitis. BLADDER: Unremarkable. No stones. REPRODUCTIVE: Unremarkable as visualized. ABDOMEN and PELVIS: INTRAPERITONEAL SPACE: See below. BONES/JOINTS: Mildly distended small bowel with air-fluid levels. Correlation for arthritis is recommended. No bowel obstruction or pneumoperitoneum. Degenerative disc disease throughout the lumbar spine. Degenerative facet arthropathy throughout the lumbar spine, most prominent in the lower lumbar spine. No acute fracture. No dislocation. SOFT TISSUES: Unremarkable. VASCULATURE: Scattered calcified atherosclerotic disease of aorta. No abdominal aortic aneurysm. LYMPH NODES: Unremarkable. No enlarged lymph nodes. IMPRESSION: 1. Mildly distended small bowel with air-fluid levels. Correlation for arthritis is recommended. No bowel obstruction or pneumoperitoneum. 2. Small esophageal hiatal hernia. 3. Fecal retention in the colon consistent with constipation. 4. Punctate left nephrolithiasis without hydronephrosis. 5. Colonic diverticulosis without acute diverticulitis. 6. Degenerative changes lumbar spine as described. EXAM: XR Chest, 1 View FINDINGS: LUNGS AND PLEURAL SPACES: Unremarkable. No consolidation. No pneumothorax. HEART: Unremarkable. No cardiomegaly. MEDIASTINUM: Unremarkable. Normal mediastinal contour. BONES/JOINTS: Unremarkable. No acute fracture. IMPRESSION: No acute cardiopulmonary process. Assessment/Plan Assessment/Plan Assessment: Sepsis, Elevated troponin, Lactic acidosis, Acute on chronic kidney injury, Hyperglycemia, Nephrolithiasis, Diverticulosis, Hypotension, Hyperlipidemia, Pulmonary Hypertension, Plan: Admit to Tele, Cardiology consult, Consider GI consult if symptoms persist, IV antibiotics, IV hydration, Blood cultures, Urine cultures, A1c, Stool for WBC, C-Diff, ova/parasites, Home medications reconciled, Home BP medications held due to hypotension, Plan discussed with: Patient, Daughter My Orders Orders - DAISHA KUNZP Procedure Category Date Status Time * Cardiology Consult CONS 03/02/25 Transmitted 10:54 Admit ADMIT 03/02/25 Transmitted 10:55 Code Status CODE 03/02/25 Transmitted 10:55 2 Gm Sodium Diet DIET 03/02/25 Transmitted Lunch Hydrocodone-Acet PHA 03/02/25 Logged 5/325mg Tab ([place] 11:00 Ondansetron Hcl PHA 03/02/25 Logged (Zofran) 11:00 Complete Blood Count LAB 03/03/25 Verified 04:00 Comprehensive LAB 03/03/25 Verified Metabolic Panel 04:00 Echo 2d Mode Cardiac US 03/02/25 Logged DOP 10:55 Condition: Critical [facility] 03/02/25 In Process 10:55 Acetaminophen Tablet PHA 03/02/25 Logged (Tylenol Tablet) 11:00 Morphine Sulfate PHA 03/02/25 Logged Injection 11:00 Nitroglycerin PHA 03/02/25 Logged Sublingual (Ntrostat 11:00 Morphine Sulfate PHA 03/02/25 Logged Injection 11:00 Stat Ekg For Chest [facility] 03/02/25 In Process Pain 10:55 Notify Md Of Changes [facility] 03/02/25 In Process From Base 10:55 Educational Resource Coordinator For [facility] 03/02/25 In Process 24 Hours 10:55 Emergency Dysrhythmia [facility] 03/02/25 In Process Protocol 10:55 Rhythm Strips Once [place] 03/02/25 In Process Every Shift 10:55 Oxygen By Nasal RT 03/02/25 Transmitted Cannula 10:55 Metoclopramide PHA 03/02/25 Logged Injection (Reglan 11:00 Vancomycin Per PHA 03/02/25 Logged Pharmacy 11:00 Cefepime 2gm/50ml Ns PHA 03/03/25 Logged (Maxipime 2gm/50ml) 10:00 Urine Bacterial ANUP 03/02/25 Logged Culture 10:55 Date of Service: Mar 02, 2025 Billing Provider: DAISHA KUNZ Common Visit Codes: [id number] INP/OBS CARE (HIGH) DAISHA KUNZ [facility] Mar 02, 2025 11:21
[2025-03-02 11:22] LABS: Urine Color Amber (Yellow)
--- NOTE | 2025-03-02 12:03 | DVHCONRES ---
Date Seen: Mar 02, 2025 Resident Creating Document: ANNETTE MONACO RESIDENT Reason for Consultation Elevated troponin History of Present Illness Patient is an 79 year old female with past medical history of hypertension, chronic kidney disease, dyslipidemia, type 2 diabetes, heart murmur, who comes i n due to abdominal pain, diarrhea and dizziness. According to the patient, since yesterday she has been having continuous watery diarrhea along with nausea and 5 episodes of vomiting. Patient notes she feels dizzy on positional changes. On review of systems patient is complaining of shortness of breath on exertion, nausea, vomiting, diarrhea. Serial troponins were 38, 152, 507, 846, 998. EKG shows inferolateral ST changes with ST depressions in lead 3, 4, 6. Patient currently denies any active ongoing chest pain, dyspnea or diaphoresis. Past Medical History hypertension, chronic kidney disease, dyslipidemia, type 2 diabetes, heart murmur Past Surgical History Appendectomy, hernia repair surgery, cataract removal surgery Social History Smoking: Quit, prior to that was smoking 1 pack per day for 20 years Alcohol: Denies Drugs: Denies Allergies: Coded Allergies: Sulfa Antibiotics (Verified Allergy, Unknown, 06/21/22) Home Meds Reported Medications Aspirin (Aspir-81) 81 Mg Tab, 1 TAB PO DAILY, #30 TAB 5 Refills 03/02/25 Lisinopril (Lisinopril) 10 Mg Tab, 1 TAB PO DAILY 03/02/25 Albuterol Sulfate (VENTOLIN MDI) 90 Mcg Ih, 90 MCG IN, INH 06/23/22 Fluticasone Propionate (FLOVENT HFA 110Mcg INH) 110 Mcg Ih, 2 PUFF INH BID, #1 INHALER 2 Refills 06/22/22 Atenolol (TENORMIN TABLET) 50 Mg Tb, 1 TAB PO DAILY, #30 TAB 5 Refills 06/22/22 Atorvastatin Calcium (ATORVASTATIN CALCIUM) 20 Mg Tab, 1 TAB PO DAILY, #30 TAB 5 Refills 06/22/22 Sildenafil Citrate (Viagra) 50 Mg Tab, 1 TAB PO UD, #6 TAB 5 Refills 06/22/22 Omeprazole (Gnp Omeprazole) 20 Mg Tab, 1 TAB PO DAILY, #90 TAB 1 Refill 06/22/22 Tiotropium [place] Monohydrate (Spiriva Handihaler) 18 Mcg Cap, 18 MCG IN, CAP 06/22/22 Discontinued Reported Medications Lisinopril (Lisinopril) 2.5 Mg Tab, 1 TAB PO DAILY, #30 TAB 5 Refills 06/22/22 Current Medications Current Medications Medications (Trade) Dose Ordered Sig/Sara Route PRN Reason Start Time Stop Time Status Last Admin Acetaminophen/ Hydrocodone Bitart (Dairy 5/325MG Tab) 1 tab Q4HP PRN PO MODERATE PAIN (4-6 PAIN SCALE) 03/02/25 11:00 Ondansetron HCl (Zofran) 4 mg Q4HP PRN IV NAUSEA / VOMITING 03/02/25 11:00 03/02/25 11:15 Acetaminophen (Tylenol Tablet) 650 mg Q6HP PRN PO PAIN SCALE 1-3 OR TEMP>100.4 03/02/25 11:00 Morphine Sulfate 2 mg Q4HPRN PRN IV SEVERE PAIN (7-10 PAIN SCALE) 03/02/25 11:00 03/02/25 11:15 Nitroglycerin (Ntrostat Sublingual) 0.4 mg Q5MINP PRN SL FOR CHEST PAIN 03/02/25 11:00 Hold Morphine Sulfate 2 mg Q30M PRN IV FOR CHEST PAIN 03/02/25 11:00 Metoclopramide HCl (Reglan Injection) 10 mg Q6HPRN PRN IV NAUSEA / VOMITING 03/02/25 11:00 Hold Vancomycin HCl 0 ml @ 0 mls/hr UD IV 03/02/25 11:00 UNV Cefepime HCl 50 ml @ 12.5 mls/hr DAILY IV 03/03/25 10:00 Atorvastatin Calcium (Lipitor) 20 mg DAILY PO 03/03/25 10:00 Patient Own Medication 1 tab DAILY PO 03/03/25 10:00 Sildenafil Citrate (Revatio) 20 mg TID PO 03/02/25 14:00 Aspirin (Ecotrin Enteric Coated Tablet) 81 mg DAILY PO 03/03/25 10:00 Review of Systems Patient seen and examined at bedside. Patient is alert and oriented to time, place person and responding to all questions. Eyes: No Pain, No Vision change, No Conjunctivae inflammation, No Eyelid inflammation, No Other, No Redness ENT: No Ear pain, No Ear discharge, No Nose pain, No Nose discharge, No Nose congestion, No Mouth pain, No Mouth swelling, No Throat pain, No Throat swe lling, No Other Cardiovascular: No Chest Pain, No Palpitations, No Orthopnea, No Paroxysmal No Dyspnea, No Edema, No Lt Headedness, No Other Respiratory: No Cough, No Dry, No Shortness of breath, SOB with exertion, No Wheezing, No Hemoptysis, No Pleuritic Pain, No Sputum, No Other Gastrointestinal: Nausea, Vomiting, Abdominal Pain, No Diarrhea, No Constipation, No Melena, No Hematochezia, No Other Genitourinary: No Dysuria, No Frequency, No Incontinence, No Hematuria, No Retention, No Other Musculoskeletal: No other, No neck pain, No shoulder pain, No arm pain, No back pain, No hand pain, No leg pain, No foot pain Skin: No Rash, No Lesions, No Jaundice, No Bruising, No Other Vital Signs Vital Signs Date Time Temp Pulse Resp B/P (MAP) Pulse Ox O2 Delivery O2 Flow Rate FiO2 03/02/25 11:39 97 Nasal Cannula* 2 28 03/02/25 11:15 76 19 145/65 03/02/25 08:00 97.8 97.8 Physical Exam General Appearance: Cooperative. Well developed. Well nourished. Dry mucous membranes Head Exam: Normal inspection Neck Exam: Normal inspection. Non-tender. Normal alignment Pulmonary/Respiratory: Chest non-tender. Clear bilateral breath sounds, no crackles, no wheezing. Cardiovascular/Chest: Regular rate and rhythm. Systolic murmur heard. No JVD. Peripheral Pulses: 2+ Radial (R). 2+ Radial (L). 2+ Pedal (R). 2+ Pedal (L) Abdominal Exam: Normal bowel sounds. Soft. normal abdomen, no visible veins, severe tenderness to palpation No hepatospenomegaly. No masses Ankle Exam: Negative ankle edema Neuro/Mental Status: A&O x4. Coherent. Thoughts/Psych: Normal thought pattern. Appropriate mood and affect. Good judgement and insight Skin Exam: Normal inspection. Normal color. Warm. Dry. Bruising on right forearm Labs/Diagnostic Data Labs Test 03/02/25 10:45 03/02/25 08:54 03/02/25 07:34 03/02/25 05:54 Range/Units Urine Color Bonita H Yellow Urine Clarity Turbid H Clear Urine pH 5.5 5.0-9.0 Urine Specific [place] 1.024 1.001-1.035 Urine Protein 1+ H Negative Urine Ketones Trace Negative Urine Blood Negative Negative /uL Urine Nitrite Negative Negative Urine Bilirubin Negative Negative Urine Urobilinogen 8 H Negative mg/dL Urine Leukocyte Esterase 2+ Negative /uL Urine RBC 5 0 - 4 /hpf Urine Microscopic WBC 36 H 0-5 /HPF Urine Squamous Epithelial Cells Few <5 /hpf Urine Bacteria Mod H None Seen /hpf Urine Glucose Normal Normal mg/dL Troponin I High Sensitivity 507 *H </=34 ng/L Lactic Acid Level 5.1 *H 0.4-2.0 mmol/L White Blood Count 17.7 H 4.4-10.8 10^3/uL Red Blood Count 4.47 4.0-5.20 10^6/uL Hemoglobin 10.4 L 12.2-16.2 g/dL Hematocrit 35.2 L 36.0-46.0 % Mean Corpuscular Volume 78.6 L 80.0-100.0 fL Mean Corpuscular Hemoglobin 23.2 L 28.0-32.0 pg Mean Corpuscular Hemoglobin Concent 29.5 L 32.0-36.0 g/dL Red Cell Distribution Width 16.6 H 11.8-14.3 % Platelet Count 252 140-450 10^3/uL Mean Platelet Volume 8.1 6.9-10.8 fL Neutrophils (%) (Auto) 37.0-80.0 % Lymphocytes (%) (Auto) 10.0-50.0 % Monocytes (%) (Auto) 0.0-12.0 % Basophils (%) (Auto) 0.0-2.0 % Neutrophils # (Auto) 1.6-8.6 10 ^3/uL Lymphocytes # (Auto) 0.4-5.4 10 ^3/uL Monocytes # (Auto) 0-1.3 10 ^3/uL Differential Total Cells Counted 100.0 100 Neutrophils % (Manual) 93 H 37.0-80.0 Band Neutrophils % (Manual) 1 Lymphocytes % (Manual) 5 L 10.0-50.0 Monocytes % (Manual) 1 0-12 Eosinophils % (Manual) 0 0-7 Basophils % (Manual) 0 0.0-2.0 Metamyelocytes % (manual) 0 Myelocytes % (Manual) 0 Promyelocytes % (Manual) 0 Blast Cells % (Manual) 0 Reactive Lymphocytes 0 Platelet Estimate Adequate Hypochromasia (manual) Slight Microcytosis Slight Sodium Level 140 136-145 mmol/L Potassium Level 4.4 3.5-5.1 mmol/L Chloride Level 110 H 98-107 mmol/L Carbon Dioxide Level 15 L 20-31 mmol/L Anion Gap 15 5-15 Blood Urea Nitrogen 26 H 9-23 mg/dL Creatinine 1.84 H 0.550-1.02 mg/dL Glomerular Filtration Rate Calc 27 >90 mL/min BUN/Creatinine Ratio 14.1 10.0-20.0 Serum Glucose 171 H 74-106 mg/dL Calcium Level 9.4 8.7-10.4 mg/dL Total Bilirubin 0.7 0.2-1.0 mg/dL Aspartate Amino Transferase (AST) 24 0-34 U/L Alanine Aminotransferase (ALT) < 9 7-40 U/L Alkaline Phosphatase 390 H 46-116 U/L Total Protein 7.1 5.7-8.2 g/dL Albumin 3.8 3.2-4.8 g/dL Lipase 78 H 12-53 U/L Assessment NSTEMI Sepsis likely due to colitis Dehydration Lactic acidosis Pulmonary hypertension NOEL likely hemodynamically mediated on questionable CKD Plan: Gisele score 134 RL 3, BNP 804 Preliminary echocardiogram shows a combination of septal hypertrophy and valv ular aortic stenosis, mild anterior wall hypokinesis In light of patient's elevated gisele score, EKG changes and elevated troponins, patient is scheduled to undergo right and left heart catheterization on Wednesday03/04/2025 Continue antibiotics Monitor blood pressure Thank you so much for the opportunity to consult on your patient. Cardiology team will follow the patient. In case of any questions or concerns please feel free to reach out. Plan discussed with Dr. Posey Plan discussed with: Patient, Other (RN) Visit Coding Cardiology RES Date of Service: Mar 02, 2025 Billing Provider: TANG POSEY Sr., MD Cardiology Common Codes: [id number] INP/OBS CARE (High) ANNETTE MONACO RESIDENT Mar 02, 2025 12:03
[2025-03-02 13:32] LABS: Triglycerides 64 mg/dL (< 150)
[2025-03-02 13:33] LABS: LDL Cholesterol 45 mg/dL (< 100)
[2025-03-02 13:34] LABS: Cholesterol 103 mg/dL (< 200); HDL Cholesterol 43 mg/dL (40-59)
[2025-03-02] MEDS: SILDENAFIL CITRATE 20 MG TAB PO SCH (14:26)
--- NOTE | 2025-03-02 17:02 | DVHSR ---
APPROVED REPORT EXAM: Two-dimensional and M-mode echocardiogram with Doppler and color Doppler. Blood Pressure: 145/65 mmHg INDICATION elevated Troponins, LV function RISK FACTORS Height: 65, Weight: 159 DIMENSIONS LVDd3.2 (3.8-5.7cm)LA (2D)3.9 (1.9-4.0cm)Aortic Root (2.0-3.7cm) LVDs1.8 (2.5-4.0cm)LA (MM) (1.9-4.0cm)Aortic Cusp Exc (1.5-2.0cm) EF (%) 78.0 (55-70%)Rt. Atrium4.1 (1.9-4.0cm)Asc. Aorta cm Mitral Valve MitralMitral Stenosis E wave1.08m/sMV Mean GR.8mmHg A wave1.98m/sMV Peak GR.21mmHg E/A ratio0.52D MVAcm2 DECEL [id number] 1/2 [id number] IVRTmsDop MVA3.38cm2 Aortic Valve Aortic ValveAortic Stenosis V11.43m/Mayela Mean GR.70mmHg V25.41m/Mayela Peak GR.117mmHg AI P 1/2 Kxnh243.48ms Other Information Technically limited study due to body habitus. Conclusion Technically good study. Sinus rhythm. Significant septal hypertrophy and concentric LVH. Left atrial enlargement. Significant aortic sclerosis/stenosis with calcification of the aortic valve. Moderate to significan t calcification of the posterior mitral leaflet and base of the posterior mitral leaflet. Left ventricular systolic performance is preserved. There is hyperdynamic ICT of the septum and post erior wall. The four chamber view reveals obstructive features. No evidence for systolic anterior m otion of the mitral leaflet. Doppler reveals a significant gradient across the aortic valve at approximately 120 mmHg consistent w ith severe aortic stenosis however how much is contributed by septal hypertrophy versus true valve st enosis is uncertain. Mean gradient across the aortic valve is at least 65 mmHg. There is at least m oderate aortic insufficiency. Moderate tricuspid regurgitation. No pericardial effusion masses or vegetations discernible.
[2025-03-02 20:00] VITALS: PULSE 88
[2025-03-02 21:00] VITALS: BP 105/43; PULSE 79; RESP 18; TEMP 99; O2SAT 99
[2025-03-03] VITALS (8 sets, daily range): BP systolic 93–139; BP diastolic 44–58; PULSE 75–99; RESP 14–18; TEMP 97.5–98.4; O2SAT 16–99
[2025-03-03 08:05] LABS: Basophils # (auto) 0 10 ^3/uL (0-0.2); Eosinophils # (auto) 0 10 ^3/uL (0-0.8); Hemoglobin 9.1 g/dL (12.2-16.2); Monocytes # (auto) 0.8 10 ^3/uL (0-1.3); Neutrophils # (auto) 12.2 10 ^3/uL (1.6-8.6)
[2025-03-03 08:09] LABS: Basophils % (auto) 0.2 % (0.0-2.0); Hematocrit 29.4 % (36.0-46.0); Lymphocytes # (auto) 1.3 10 ^3/uL (0.4-5.4); Lymphocytes % (auto) 8.8 % (10.0-50.0); Mean Corpuscular Hemoglobin 23.5 pg (28.0-32.0); Mean Corpuscular Hgb Conc. 30.9 g/dL (32.0-36.0); Mean Corpuscular Volume 76.1 fL (80.0-100.0); Monocytes % (auto) 5.6 % (0.0-12.0); Neutrophils % (auto) 85.4 % (37.0-80.0); Platelet Count (auto) 188 10^3/uL (140-450); Red Blood Cells 3.86 10^6/uL (4.0-5.20); Red Cell Distribution Width 16.6 % (11.8-14.3); White Blood Cell 14.3 10^3/uL (4.4-10.8)
[2025-03-03 08:14] LABS: Alanine Aminotransferase 15 U/L (7-40); Albumin 3.3 g/dL (3.2-4.8); Anion Gap 12 (5-15); BUN/Creatinine Ratio 21.3 (10.0-20.0); Bilirubin, Total 0.9 mg/dL (0.2-1.0); Calcium 9.7 mg/dL (8.7-10.4); Potassium 4.3 mmol/L (3.5-5.1); Sodium 143 mmol/L (136-145); Total Protein 6.1 g/dL (5.7-8.2)
[2025-03-03 08:15] LABS: Alkaline Phosphatase 304 U/L (46-116); Aspartate Aminotransferase 41 U/L (<34); Blood Urea Nitrogen 40 mg/dL (9-23); Carbon Dioxide 16 mmol/L (20-31); Chloride 115 mmol/L (98-107); Glucose 112 mg/dL (74-106)
[2025-03-03] MEDS: CEFEPIME 2GM/50ML NS 50 ML IV SCH (10:27)
[2025-03-03] MEDS: ATORVASTATIN 20 MG TAB PO SCH (10:29)
[2025-03-03] MEDS: ASPirin-EC 81 mg tab PO SCH (10:30)
--- NOTE | 2025-03-03 11:44 | DVHPN2 ---
Subjective Patient reports having abdominal pain, periumbilical area. Denies having any chest pain. Denies having any shortness of breath. Reviewed: Care Plan, H&P, Labs, Medications, Previous Orders Changes from previous H/P or p: Changes General: Per HPI Eyes: No Pain, No Vision change, No Conjunctivae inflammation, No Eyelid inflammation, No Other, No Redness ENT: No Ear pain, No Ear discharge, No Nose pain, No Nose discharge, No Nose congestion, No Mouth pain, No Mouth swelling, No Throat pain, No Throat swelling, No Other Cardiovascular: No Chest Pain, No Palpitations, No Orthopnea, No Paroxysmal Noc. Dyspnea, No Edema, No Lt Headedness, No Other Respiratory: No Cough, No Dry, No Shortness of breath, No SOB with excertion, No Wheezing, No Hemoptysis, No Pleuritic Pain, No Sputum, No Other Gastrointestinal: Nausea, Vomiting, Abdominal Pain, Diarrhea; No Constipation, No Melena, No Hematochezia, No Other Genitourinary: No Dysuria, No Frequency, No Incontinence, No Hematuria, No Retention, No Other Musculoskeletal: No other, No neck pain, No shoulder pain, No arm pain, No back pain, No hand pain, No leg pain, No foot pain Skin: No Rash, No Lesions, No Jaundice, No Bruising, No Other Objective Vitals Vital Signs Date Time Temp Pulse Resp B/P (MAP) Pulse Ox O2 Delivery O2 Flow Rate FiO2 03/03/25 08:55 97.5 78 18 111/58 (75) 98 97.5 03/02/25 20:00 Nasal Cannula* 4 36 Intake/Output Intake and Output 03/03/25 07:00 Intake Total 3550 ml Output Total 700 ml Balance 2850 ml Intake IV Total 3550 ml Output Urine Total 300 ml Stool Total 400 ml # Bowel Movements 4 General Appearance: Alert, Oriented X3, Cooperative, mild distress HEENT: Atraumatic, PERRLA Lungs: Clear to auscultation, Normal air movement Cardiovascular: Normal S1, Normal S2 Abdomen: Normal bowel sounds, Soft, No tenderness Neuro: Normal gait, Normal speech, Cranial nerves 3-12 NL Skin: Dry, Intact Psych/Mental Status: Mental status NL, Mood NL Medications Current Medications Medications Dose Ordered Sig/Sara Route Start Time Stop Time Status Last Admin Dose Admin Acetaminophen/ Hydrocodone Bitart 1 tab Q4HP PRN PO 03/02/25 11:00 Ondansetron HCl 4 mg Q4HP PRN IV 03/02/25 11:00 03/02/25 11:15 4 MG Acetaminophen 650 mg Q6HP PRN PO 03/02/25 11:00 Morphine Sulfate 2 mg Q4HPRN PRN IV 03/02/25 11:00 03/02/25 11:15 2 MG Nitroglycerin 0.4 mg Q5MINP PRN SL 03/02/25 11:00 Hold Morphine Sulfate 2 mg Q30M PRN IV 03/02/25 11:00 Metoclopramide HCl 10 mg Q6HPRN PRN IV 03/02/25 11:00 Hold Vancomycin HCl 0 ml @ 0 mls/hr UD IV 03/02/25 11:00 Cancel Cefepime HCl 50 ml @ 12.5 mls/hr DAILY IV 03/03/25 10:00 03/03/25 10:27 12.5 MLS/HR Atorvastatin Calcium 20 mg DAILY PO 03/03/25 10:00 03/03/25 10:29 20 MG Patient Own Medication 1 tab DAILY PO 03/03/25 10:00 Sildenafil Citrate 20 mg TID PO 03/02/25 14:00 03/03/25 05:38 20 MG Aspirin 81 mg DAILY PO 03/03/25 10:00 03/03/25 10:30 81 MG Sodium Bicarbonate 50 ml/ Sodium Chloride 1,050 ml @ 75 mls/hr Q14H IV 03/03/25 11:30 UNV Enoxaparin Sodium 70 mg Q12HR SC 03/03/25 22:00 UNV Metronidazole 100 ml @ 100 mls/hr Q8HR IV 03/03/25 14:00 UNV Docusate Sodium 100 mg BID PO 03/03/25 22:00 UNV Laboratory Results Laboratory Tests 03/03/25 07:26 Chemistry Test 03/03/25 07:26 Albumin 3.3 g/dL (3.2-4.8) Calcium Level 9.7 mg/dL (8.7-10.4) Total Protein 6.1 g/dL (5.7-8.2) Cardiac Markers Test 03/02/25 13:33 B-Type Natriuretic Peptide 804.62 pg/mL (0-100) LFT Test 03/03/25 07:26 Alanine Aminotransferase (ALT) 15 U/L (7-40) Alkaline Phosphatase 304 U/L (46-116) H Aspartate Amino Transferase (AST) 41 U/L (<34) H Total Bilirubin 0.9 mg/dL (0.2-1.0) HgA1c, TSH Test 03/02/25 12:52 Hemoglobin A1c 5.9 % A1C (<5.7) H Urinalysis Test 03/02/25 10:45 Urine Color [place] (Yellow) H Urine Clarity Turbid (Clear) H Urine pH 5.5 (5.0-9.0) Urine Specific [place] 1.024 (1.001-1.035) Urine Protein 1+ (Negative) H Urine Ketones Trace (Negative) Urine Blood Negative /uL (Negative) Urine Nitrite Negative (Negative) Urine Bilirubin Negative (Negative) Urine Urobilinogen 8 mg/dL (Negative) H Urine Leukocyte Esterase 2+ /uL (Negative) Urine RBC 5 /hpf (0 - 4) Urine Microscopic WBC 36 /HPF (0-5) H Urine Squamous Epithelial Cells Few /hpf (<5) Urine Bacteria Mod /hpf (None Seen) H Urine Glucose Normal mg/dL (Normal) Microbiology Microbiology Date/Time Source Procedure Growth Status 03/02/25 05:54 Blood Blood Culture - Preliminary NO GROWTH AFTER 24 HOURS OF INCUBATION. Resulted Labs and/or images reviewed: Labs reviewed by me, Image(s) reviewed by me Assessment/Plan Assessment/Plan Impression: -NSTEMI, rule out type 1 -constipation -shock,? Cardiogenic versus septic -pulmonary hypertension -sepsis -constipation -primary hypertension -dyslipidemia -CKD stage IIIB -acute hypoxic respiratory failure Plan: -change antibiotics to cefepime and Flagyl -urine and blood culture -cardiology consultation: Recommendations reviewed -echocardiogram: Results reviewed -start IV fluids with half NS with one amp of sodium bicarbonate -Lovenox, therapeutic dose -PPI -unstable to transfer to [facility] Repeat labs in a.m. Total time spent with patient discussing and formulating plan of care: 35 minutes. This medical document was created using an electronic medical record system with [employer] system. Although this document has been carefully reviewed, there may still be some phonetic and typographical errors. These areas are purely typographical due to imperfections of the software programs, and do not reflect any compromise in the patient's medical care. Plan discussed with: Patient, Other (RN) My Orders Orders - MARNI EASTON NP Procedure Category Date Status Time Sod Chl 0.45% PHA 03/03/25 Logged (Sodi... W/Sodium 11:30 Enoxaparin Sodium PHA 03/03/25 Logged (Lovenox) 22:00 Metronidazole PHA 03/03/25 Logged 500mg/100ml (Flagyl 14:00 Complete Blood Count LAB 03/04/25 Verified 04:00 Comprehensive LAB 03/04/25 Verified Metabolic Panel 04:00 Docusate Sodium PHA 03/03/25 Logged Capsule (Colace 22:00 Pantoprazole PHA 03/03/25 Verified (Protonix) 11:45 Date of Service: Mar 03, 2025 Billing Provider: MARNI EASTON NP Common Visit Codes: [id number] INP/OBS CARE(HIGH) MARNI EASTON NP Mar 03, 2025 11:44
[2025-03-03] MEDS: PANTOPRAZOLE 40 MG/10 ML VIAL INJ IV SCH (13:16)
[2025-03-03] MEDS: metroNIDAZOLE 500MG/100ML 100 ML IV SCH (13:17)
[2025-03-03] MEDS: SODIUM BICARB 50mEq/50ml Vial 50 ML in SOD CHL 0.45% 1,000 ML IV SCH (14:42)
[2025-03-03] MEDS: DOCUSATE SOD 100 MG CAP PO SCH (22:28)
[2025-03-04] VITALS (9 sets, daily range): BP systolic 119–162; BP diastolic 39–91; PULSE 70–92; RESP 15–19; TEMP 97.8–98.7; O2SAT 94–99
[2025-03-04 05:54] LABS: Basophils # (auto) 0 10 ^3/uL (0-0.2); Basophils % (auto) 0.3 % (0.0-2.0); Eosinophils # (auto) 0.1 10 ^3/uL (0-0.8); Eosinophils % (auto) 0.6 % (0.0-7.0); Hematocrit 27.9 % (36.0-46.0); Hemoglobin 8.9 g/dL (12.2-16.2); Lymphocytes # (auto) 1.6 10 ^3/uL (0.4-5.4); Lymphocytes % (auto) 13.6 % (10.0-50.0); Mean Corpuscular Hemoglobin 23.8 pg (28.0-32.0); Mean Corpuscular Hgb Conc. 31.8 g/dL (32.0-36.0); Mean Corpuscular Volume 74.9 fL (80.0-100.0); Monocytes # (auto) 0.8 10 ^3/uL (0-1.3); Neutrophils # (auto) 9.3 10 ^3/uL (1.6-8.6); Neutrophils % (auto) 78.5 % (37.0-80.0); Platelet Count (auto) 164 10^3/uL (140-450); Red Blood Cells 3.73 10^6/uL (4.0-5.20); Red Cell Distribution Width 16.3 % (11.8-14.3); White Blood Cell 11.8 10^3/uL (4.4-10.8)
[2025-03-04 06:17] LABS: Alanine Aminotransferase 12 U/L (7-40); Albumin 3.2 g/dL (3.2-4.8); Anion Gap 11 (5-15); BUN/Creatinine Ratio 28.6 (10.0-20.0); Glucose 106 mg/dL (74-106); Potassium 3.9 mmol/L (3.5-5.1); Sodium 139 mmol/L (136-145); Total Protein 5.9 g/dL (5.7-8.2)
[2025-03-04 06:18] LABS: Alkaline Phosphatase 235 U/L (46-116); Aspartate Aminotransferase 41 U/L (<34); Blood Urea Nitrogen 38 mg/dL (9-23); Carbon Dioxide 17 mmol/L (20-31); Chloride 111 mmol/L (98-107)
[2025-03-04] MEDS: ENOXAPARIN SOD 80 MG/0.8ML SYRINGE SC SCH (10:58)
--- NOTE | 2025-03-04 12:53 | DVHPN2 ---
Subjective Patient reports having abdominal pain, periumbilical area. Denies having any chest pain. Denies having any shortness of breath. Reviewed: Care Plan, H&P, Labs, Medications, Previous Orders Changes from previous H/P or p: No Changes General: Per HPI Eyes: No Pain, No Vision change, No Conjunctivae inflammation, No Eyelid inflammation, No Other, No Redness ENT: No Ear pain, No Ear discharge, No Nose pain, No Nose discharge, No Nose congestion, No Mouth pain, No Mouth swelling, No Throat pain, No Throat swelling, No Other Cardiovascular: No Chest Pain, No Palpitations, No Orthopnea, No Paroxysmal Noc. Dyspnea, No Edema, No Lt Headedness, No Other Respiratory: No Cough, No Dry, No Shortness of breath, No SOB with excertion, No Wheezing, No Hemoptysis, No Pleuritic Pain, No Sputum, No Other Gastrointestinal: Nausea, Vomiting, Abdominal Pain, Diarrhea; No Constipation, No Melena, No Hematochezia, No Other Genitourinary: No Dysuria, No Frequency, No Incontinence, No Hematuria, No Retention, No Other Musculoskeletal: No other, No neck pain, No shoulder pain, No arm pain, No back pain, No hand pain, No leg pain, No foot pain Skin: No Rash, No Lesions, No Jaundice, No Bruising, No Other Objective Vitals Vital Signs Date Time Temp Pulse Resp B/P (MAP) Pulse Ox O2 Delivery O2 Flow Rate FiO2 03/04/25 08:55 98.0 77 16 122/69 (86) 96 98.0 03/04/25 08:00 Nasal Cannula* 4 36 Intake/Output Intake and Output 03/04/25 07:00 Intake Total 240 ml Balance 240 ml Intake Oral 240 ml General Appearance: Alert, Oriented X3, Cooperative, mild distress HEENT: Atraumatic, PERRLA Lungs: Clear to auscultation, Normal air movement Cardiovascular: Normal S1, Normal S2 Abdomen: Normal bowel sounds, Soft, No tenderness Neuro: Normal gait, Normal speech, Cranial nerves 3-12 NL Skin: Dry, Intact Psych/Mental Status: Mental status NL, Mood NL Medications Current Medications Medications Dose Ordered Sig/Sara Route Start Time Stop Time Status Last Admin Dose Admin Acetaminophen/ Hydrocodone Bitart 1 tab Q4HP PRN PO 03/02/25 11:00 Ondansetron HCl 4 mg Q4HP PRN IV 03/02/25 11:00 03/02/25 11:15 4 MG Acetaminophen 650 mg Q6HP PRN PO 03/02/25 11:00 Morphine Sulfate 2 mg Q4HPRN PRN IV 03/02/25 11:00 03/02/25 11:15 2 MG Nitroglycerin 0.4 mg Q5MINP PRN SL 03/02/25 11:00 Hold Morphine Sulfate 2 mg Q30M PRN IV 03/02/25 11:00 Metoclopramide HCl 10 mg Q6HPRN PRN IV 03/02/25 11:00 Hold Vancomycin HCl 0 ml @ 0 mls/hr UD IV 03/02/25 11:00 Cancel Cefepime HCl 50 ml @ 12.5 mls/hr DAILY IV 03/03/25 10:00 03/04/25 11:06 12.5 MLS/HR Atorvastatin Calcium 20 mg DAILY PO 03/03/25 10:00 03/04/25 10:58 20 MG Sildenafil Citrate 20 mg TID PO 03/02/25 14:00 03/04/25 06:03 20 MG Aspirin 81 mg DAILY PO 03/03/25 10:00 03/04/25 10:58 81 MG Sodium Bicarbonate 50 ml/ Sodium Chloride 1,050 ml @ 75 mls/hr Q14H IV 03/03/25 11:30 03/03/25 14:42 75 MLS/HR Enoxaparin Sodium 70 mg DAILY SC 03/04/25 10:00 03/04/25 10:58 70 MG Metronidazole 100 ml @ 100 mls/hr Q8HR IV 03/03/25 14:00 03/04/25 06:03 100 MLS/HR Docusate Sodium 100 mg BID PO 03/03/25 22:00 03/04/25 10:58 100 MG Pantoprazole Sodium 40 mg DAILY IV 03/03/25 11:45 03/04/25 10:57 40 MG Laboratory Results Laboratory Tests 03/04/25 04:41 Chemistry Test 03/04/25 04:41 Albumin 3.2 g/dL (3.2-4.8) Calcium Level 9.0 mg/dL (8.7-10.4) Total Protein 5.9 g/dL (5.7-8.2) LFT Test 03/04/25 04:41 Alanine Aminotransferase (ALT) 12 U/L (7-40) Alkaline Phosphatase 235 U/L (46-116) H Aspartate Amino Transferase (AST) 41 U/L (<34) H Total Bilirubin 1.0 mg/dL (0.2-1.0) Urinalysis Test 03/02/25 10:45 Urine Color [place] (Yellow) H Urine Clarity Turbid (Clear) H Urine pH 5.5 (5.0-9.0) Urine Specific [place] 1.024 (1.001-1.035) Urine Protein 1+ (Negative) H Urine Ketones Trace (Negative) Urine Blood Negative /uL (Negative) Urine Nitrite Negative (Negative) Urine Bilirubin Negative (Negative) Urine Urobilinogen 8 mg/dL (Negative) H Urine Leukocyte Esterase 2+ /uL (Negative) Urine RBC 5 /hpf (0 - 4) Urine Microscopic WBC 36 /HPF (0-5) H Urine Squamous Epithelial Cells Few /hpf (<5) Urine Bacteria Mod /hpf (None Seen) H Urine Glucose Normal mg/dL (Normal) Microbiology Microbiology Date/Time Source Procedure Growth Status 03/03/25 00:00 Stool Stool Culture - Preliminary Resulted 03/03/25 00:00 Stool Shiga Toxin I & II Pending Resulted 03/03/25 00:00 Stool Clostridium difficile Toxin Assay - Final Resulted 03/02/25 10:45 Voided Urine Urine Culture - Preliminary Resulted 03/02/25 05:54 Blood Blood Culture - Preliminary NO GROWTH AFTER 48 HOURS OF INCUBATION. Resulted Labs and/or images reviewed: Labs reviewed by me, Image(s) reviewed by me Assessment/Plan Assessment/Plan Impression: -NSTEMI, rule out type 1 -constipation -shock,? Cardiogenic versus septic -pulmonary hypertension -sepsis -constipation -primary hypertension -dyslipidemia -CKD stage IIIB -acute hypoxic respiratory failure Plan: Events: Patient continues to report having shortness of breath and cough. O2 requirements. -continue antibiotics to cefepime and Flagyl -urine and blood culture : Pending -cardiology consultation: Recommendations reviewed -echocardiogram: Results reviewed -continue IV fluids with half NS with one amp of sodium bicarbonate -Lovenox, therapeutic dose -PPI -unstable to transfer to [facility] Repeat labs in a.m. Total time spent with patient discussing and formulating plan of care: 35 minutes. This medical document was created using an electronic medical record system with [employer] dictation system. Although this document has been carefully reviewed, there may still be some phonetic and typographical errors. These areas are purely typographical due to imperfections of the software programs, and do not reflect any compromise in the patient's medical care. Plan discussed with: Patient, Other (RN) My Orders Orders - MARNI EASTON NP Procedure Category Date Status Time Chest Xray 1 View XY 03/04/25 Logged 12:47 Complete Blood Count LAB 03/05/25 Verified 04:00 PTPTT LAB 03/05/25 Verified 04:00 Troponin-I Hs LAB 03/05/25 Verified 04:00 Date of Service: Mar 04, 2025 Billing Provider: MARNI EASTON NP Common Visit Codes: [id number] INP/OBS CARE(HIGH) MARNI EASTON NP Mar 04, 2025 12:53
[2025-03-04] MEDS: SODIUM BICARB 8.4% 50Meq/50ml SYR Vial IV ONE (16:32)
--- NOTE | 2025-03-04 17:06 | DVH ---
CHEST RADIOGRAPH Indication: pna Technique: Single frontal view of the chest was obtained Comparison: XY CHEST XRAY 1 VIEW on DOS: 03/02/25, CHEST PORTABLE on DOS: 06/21/22, CXRP on DOS: 2 FINDINGS: Lines and Tubes: None Lungs: No focal consolidation. Bronchovascular crowding due to low lung volumes with mild interstitia l prominence. Pleura: No effusion. No pneumothorax. Cardiomediastinal contours: Borderline cardiomegaly with uncoiling of the aorta. Widening of the medi astinum which is most likely accentuated by Image rotation to the right. Bones: No acute osseous abnormality. IMPRESSION: Bronchovascular crowding . Underlying mild pulmonary vascular congestion can not be excluded. Widening of the mediastinum which is most likely accentuated by slight Image rotation to the right. I f clinically indicated, may consider CT for further evaluation.
[2025-03-05] VITALS (8 sets, daily range): BP systolic 147–172; BP diastolic 69–94; PULSE 35–111; RESP 16–20; TEMP 96.8–99.6; O2SAT 93–99
[2025-03-05 08:12] LABS: Basophils # (auto) 0 10 ^3/uL (0-0.2); Basophils % (auto) 0.4 % (0.0-2.0); Eosinophils # (auto) 0.2 10 ^3/uL (0-0.8); Eosinophils % (auto) 2.6 % (0.0-7.0); Hematocrit 26.4 % (36.0-46.0); Hemoglobin 8.5 g/dL (12.2-16.2); Lymphocytes # (auto) 1.3 10 ^3/uL (0.4-5.4); Lymphocytes % (auto) 19.1 % (10.0-50.0); Mean Corpuscular Hemoglobin 23.8 pg (28.0-32.0); Mean Corpuscular Hgb Conc. 32.1 g/dL (32.0-36.0); Mean Corpuscular Volume 74.2 fL (80.0-100.0); Monocytes # (auto) 0.5 10 ^3/uL (0-1.3); Monocytes % (auto) 7.9 % (0.0-12.0); Neutrophils # (auto) 4.9 10 ^3/uL (1.6-8.6); Platelet Count (auto) 157 10^3/uL (140-450); Red Blood Cells 3.56 10^6/uL (4.0-5.20); Red Cell Distribution Width 16.1 % (11.8-14.3)
[2025-03-05 08:21] LABS: Partial Thromboplastin Time 31.3 SEC (24.5-34.5); Prothrombin Time 10.6 sec (9.3-11.8)
[2025-03-05] MEDS ORDERED: IODIXANOL 320MG/ML 100ML BTL IV ONE (12:21)
[2025-03-05] MEDS ORDERED: HEPARIN IN NS 1000Units/500mL 0 ML ONE (12:21)
--- NOTE | 2025-03-05 12:44 | ECG ---
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
--- NOTE | 2025-03-05 13:20 | DVHPN2 ---
Subjective Patient reports having abdominal pain, periumbilical area. Denies having any chest pain. Denies having any shortness of breath. Reviewed: Care Plan, H&P, Labs, Medications, Previous Orders Changes from previous H/P or p: No Changes General: Per HPI Eyes: No Pain, No Vision change, No Conjunctivae inflammation, No Eyelid inflammation, No Other, No Redness ENT: No Ear pain, No Ear discharge, No Nose pain, No Nose discharge, No Nose congestion, No Mouth pain, No Mouth swelling, No Throat pain, No Throat swelling, No Other Cardiovascular: No Chest Pain, No Palpitations, No Orthopnea, No Paroxysmal Noc. Dyspnea, No Edema, No Lt Headedness, No Other Respiratory: No Cough, No Dry, No Shortness of breath, No SOB with excertion, No Wheezing, No Hemoptysis, No Pleuritic Pain, No Sputum, No Other Gastrointestinal: Nausea, Vomiting, Abdominal Pain, Diarrhea; No Constipation, No Melena, No Hematochezia, No Other Genitourinary: No Dysuria, No Frequency, No Incontinence, No Hematuria, No Retention, No Other Musculoskeletal: No other, No neck pain, No shoulder pain, No arm pain, No back pain, No hand pain, No leg pain, No foot pain Skin: No Rash, No Lesions, No Jaundice, No Bruising, No Other Objective Vitals Vital Signs Date Time Temp Pulse Resp B/P (MAP) Pulse Ox O2 Delivery O2 Flow Rate FiO2 03/05/25 08:30 98.6 90 17 153/77 (102) 95 98.6 03/05/25 08:00 Nasal Cannula* 4 36 General Appearance: Alert, Oriented X3, Cooperative, mild distress HEENT: Atraumatic, PERRLA Lungs: Clear to auscultation, Normal air movement Cardiovascular: Normal S1, Normal S2 Abdomen: Normal bowel sounds, Soft, No tenderness Neuro: Normal gait, Normal speech, Cranial nerves 3-12 NL Skin: Dry, Intact Psych/Mental Status: Mental status NL, Mood NL Medications Current Medications Medications Dose Ordered Sig/Sara Route Start Time Stop Time Status Last Admin Dose Admin Acetaminophen/ Hydrocodone Bitart 1 tab Q4HP PRN PO 03/02/25 11:00 Ondansetron HCl 4 mg Q4HP PRN IV 03/02/25 11:00 03/02/25 11:15 4 MG Acetaminophen 650 mg Q6HP PRN PO 03/02/25 11:00 Morphine Sulfate 2 mg Q4HPRN PRN IV 03/02/25 11:00 03/02/25 11:15 2 MG Nitroglycerin 0.4 mg Q5MINP PRN SL 03/02/25 11:00 Hold Morphine Sulfate 2 mg Q30M PRN IV 03/02/25 11:00 Metoclopramide HCl 10 mg Q6HPRN PRN IV 03/02/25 11:00 Hold Vancomycin HCl 0 ml @ 0 mls/hr UD IV 03/02/25 11:00 Cancel Atorvastatin Calcium 20 mg DAILY PO 03/03/25 10:00 03/05/25 09:16 20 MG Sildenafil Citrate 20 mg TID PO 03/02/25 14:00 03/04/25 21:44 20 MG Aspirin 81 mg DAILY PO 03/03/25 10:00 03/04/25 10:58 81 MG Sodium Bicarbonate 50 ml/ Sodium Chloride 1,050 ml @ 75 mls/hr Q14H IV 03/03/25 11:30 03/05/25 05:30 75 MLS/HR Enoxaparin Sodium 70 mg DAILY SC 03/04/25 10:00 Hold 03/04/25 10:58 70 MG Docusate Sodium 100 mg BID PO 03/03/25 22:00 03/04/25 21:44 100 MG Pantoprazole Sodium 40 mg DAILY IV 03/03/25 11:45 03/05/25 09:16 40 MG Meropenem 50 ml @ 17 mls/hr Q12HR IV 03/05/25 22:00 Laboratory Results Laboratory Tests 03/04/25 04:41 03/05/25 07:18 Coagulation Test 03/05/25 07:18 Prothrombin Time 10.6 sec (9.3-11.8) Prothrombin Time INR 1.00 (0.9-1.15) Activated Partial Thromboplast Time 31.3 SEC (24.5-34.5) Urinalysis Test 03/02/25 10:45 Urine Color Bonita (Yellow) H Urine Clarity Turbid (Clear) H Urine pH 5.5 (5.0-9.0) Urine Specific [place] 1.024 (1.001-1.035) Urine Protein 1+ (Negative) H Urine Ketones Trace (Negative) Urine Blood Negative /uL (Negative) Urine Nitrite Negative (Negative) Urine Bilirubin Negative (Negative) Urine Urobilinogen 8 mg/dL (Negative) H Urine Leukocyte Esterase 2+ /uL (Negative) Urine RBC 5 /hpf (0 - 4) Urine Microscopic WBC 36 /HPF (0-5) H Urine Squamous Epithelial Cells Few /hpf (<5) Urine Bacteria Mod /hpf (None Seen) H Urine Glucose Normal mg/dL (Normal) Microbiology Microbiology Date/Time Source Procedure Growth Status 03/03/25 00:00 Stool Stool Culture - Final Complete 03/03/25 00:00 Stool Shiga Toxin I & II - Final Complete 03/03/25 00:00 Stool Clostridium difficile Toxin Assay - Final Complete 03/02/25 10:45 Voided Urine Urine Culture - Final Escherichia coli - ESBL Complete 03/02/25 05:54 Blood Blood Culture - Preliminary NO GROWTH AFTER 72 HOURS OF INCUBATION. Resulted Labs and/or images reviewed: Labs reviewed by me, Image(s) reviewed by me Assessment/Plan Assessment/Plan Impression: -NSTEMI, rule out type 1 -constipation -shock,? Cardiogenic versus septic -pulmonary hypertension -sepsis -constipation -primary hypertension -dyslipidemia -CKD stage IIIB -acute hypoxic respiratory failure Plan: Events: Patient denies any symptoms at this time. Urine positive for ESBL -change antibiotics to Merrem -urine and blood culture : Reviewed -cardiology consultation: Recommendations reviewed -echocardiogram: Results reviewed -continue IV fluids with half NS with one amp of sodium bicarbonate -Lovenox, therapeutic dose -PPI -unstable to transfer to [facility] Repeat labs in a.m. Total time spent with patient discussing and formulating plan of care: 35 minutes. This medical document was created using an electronic medical record system with [employer] dictation system. Although this document has been carefully reviewed, there may still be some phonetic and typographical errors. These areas are purely typographical due to imperfections of the software programs, and do not reflect any compromise in the patient's medical care. Plan discussed with: Patient, Other (RN) My Orders Orders - MARNI EASTON PROFESSIONAL NURSING ASSISTANT Procedure Category Date Status Time Meropenem 1gm Ivpb PHA 03/05/25 In Process (Merrem 1gm/ Ns) 22:00 Basic Metabolic Panel LAB 03/06/25 Verified 04:00 Insert Midline ORDERS 03/05/25 Transmitted 13:11 Date of Service: Mar 05, 2025 Billing Provider: MARNI EASTON NP Common Visit Codes: [id number] INP/OBS CARE(HIGH) MARNI EASTON NP Mar 05, 2025 13:20
--- NOTE | 2025-03-05 15:31 | DVHPNRES ---
Progress Note Date Seen: Mar 05, 2025 Resident Creating Document: ANNETTE MONACO RESIDENT Medical Necessity Reason Pt with a Central, PICC or Fol: No Subjective Review of Systems Patient seen and examined at bedside. Patient is alert and oriented to time, place person and responding to all questions. Continues experiencing nausea and abdominal pain. Objective vital signs Vital Sign Date Time Temp Pulse Resp B/P (MAP) Pulse Ox O2 Delivery O2 Flow Rate FiO2 03/05/25 14:22 97.4 95 16 172/94 (120) 95 97.4 03/05/25 08:00 Nasal Cannula* 4 36 medications Current Medications Medications Dose Ordered Sig/Sara Route Start Time Stop Time Status Last Admin Dose Admin Acetaminophen/ Hydrocodone Bitart 1 tab Q4HP PRN PO 03/02/25 11:00 Ondansetron HCl 4 mg Q4HP PRN IV 03/02/25 11:00 03/02/25 11:15 4 MG Acetaminophen 650 mg Q6HP PRN PO 03/02/25 11:00 Morphine Sulfate 2 mg Q4HPRN PRN IV 03/02/25 11:00 03/02/25 11:15 2 MG Nitroglycerin 0.4 mg Q5MINP PRN SL 03/02/25 11:00 Hold Morphine Sulfate 2 mg Q30M PRN IV 03/02/25 11:00 Metoclopramide HCl 10 mg Q6HPRN PRN IV 03/02/25 11:00 Hold Vancomycin HCl 0 ml @ 0 mls/hr UD IV 03/02/25 11:00 Cancel Atorvastatin Calcium 20 mg DAILY PO 03/03/25 10:00 03/05/25 09:16 20 MG Sildenafil Citrate 20 mg TID PO 03/02/25 14:00 03/04/25 21:44 20 MG Aspirin 81 mg DAILY PO 03/03/25 10:00 03/04/25 10:58 81 MG Sodium Bicarbonate 50 ml/ Sodium Chloride 1,050 ml @ 75 mls/hr Q14H IV 03/03/25 11:30 03/05/25 05:30 75 MLS/HR Enoxaparin Sodium 70 mg DAILY SC 03/04/25 10:00 Hold 03/04/25 10:58 70 MG Docusate Sodium 100 mg BID PO 03/03/25 22:00 03/04/25 21:44 100 MG Pantoprazole Sodium 40 mg DAILY IV 03/03/25 11:45 03/05/25 09:16 40 MG Meropenem 50 ml @ 17 mls/hr Q12HR IV 03/05/25 22:00 Examination General Appearance: Cooperative. Well developed. Well nourished. Dry mucous membranes Head Exam: Normal inspection Neck Exam: Normal inspection. Non-tender. Normal alignment Pulmonary/Respiratory: Chest non-tender. Clear bilateral breath sounds, no crackles, no wheezing. Cardiovascular/Chest: Regular rate and rhythm. Systolic murmur heard. No JVD. Peripheral Pulses: 2+ Radial (R). 2+ Radial (L). 2+ Pedal (R). 2+ Pedal (L) Abdominal Exam: Normal bowel sounds. Soft. normal abdomen, no visible veins, s evere tenderness to palpation No hepatospenomegaly. No masses Ankle Exam: Negative ankle edema Neuro/Mental Status: A&O x4. Coherent. Thoughts/Psych: Normal thought pattern. Appropriate mood and affect. Good judgement and insight Skin Exam: Normal inspection. Normal color. Warm. Dry. Bruising on right forearm laboratory and microbiology Laboratory Tests 03/05/25 07:18 03/04/25 04:41 Test 03/04/25 04:41 Range/Units Serum Glucose 106 74-106 mg/dL Microbiology Date/Time Source Procedure Growth Status 03/03/25 00:00 Stool Stool Culture - Final Complete 03/03/25 00:00 Stool Shiga Toxin I & II - Final Complete 03/03/25 00:00 Stool Clostridium difficile Toxin Assay - Final Complete 03/02/25 10:45 Voided Urine Urine Culture - Final Escherichia coli - ESBL Complete 03/02/25 05:54 Blood Blood Culture - Preliminary NO GROWTH AFTER 72 HOURS OF INCUBATION. Resulted Labs and/or images reviewed: Labs reviewed by me, Image(s) reviewed by me Problem List/Assessment/Plan Problem List/Assessment/Plan NSTEMI Sepsis likely due to colitis Dehydration Lactic acidosis Pulmonary hypertension NOEL likely hemodynamically mediated on questionable CKD Plan: Gisele score 134 RL 3, BNP 804 Preliminary echocardiogram shows a combination of septal hypertrophy and valvular aortic stenosis, mild anterior wall hypokinesis In light of patient's elevated gisele score, EKG changes and elevated troponins, patient is scheduled to undergo right and left heart catheterization on Wednesday03/06/2025 Continue antibiotics Monitor blood pressure Hold Lovenox day of procedure Thank you so much for the opportunity to consult on your patient. Cardiology team will follow the patient. In case of any questions or concerns please feel free to reach out. Plan discussed with Dr. Yun Plan discussed with: Patient, Other (RN) Visit Coding Cardiology RES Date of Service: Mar 05, 2025 Billing Provider: MUKUL YUN MD Cardiology Common Codes: [id number] Mar 05, 2025 15:31
[2025-03-05] MEDS: ACETAMINOPHEN 325 MG TAB PO PRN (18:54)
[2025-03-05] MEDS: MEROPENEM 1GM IVPB 50 ML IV SCH (20:53)
[2025-03-06] VITALS (13 sets, daily range): BP systolic 110–170; BP diastolic 60–91; PULSE 87–106; RESP 16–24; TEMP 97.5–98.3; O2SAT 94–98
[2025-03-06 06:17] LABS: Sodium 143 mmol/L (136-145)
[2025-03-06 06:18] LABS: Anion Gap 10 (5-15); Calcium 9.3 mg/dL (8.7-10.4); Carbon Dioxide 23 mmol/L (20-31); Chloride 110 mmol/L (98-107); Potassium 3.4 mmol/L (3.5-5.1)
[2025-03-06 06:23] LABS: Basophils # (auto) 0 10 ^3/uL (0-0.2); Basophils % (auto) 0.5 % (0.0-2.0); Blood Urea Nitrogen 12 mg/dL (9-23); Eosinophils # (auto) 0.3 10 ^3/uL (0-0.8); Eosinophils % (auto) 4.7 % (0.0-7.0); Glucose 96 mg/dL (74-106); Hematocrit 29.1 % (36.0-46.0); Hemoglobin 9.4 g/dL (12.2-16.2); Lymphocytes # (auto) 1.2 10 ^3/uL (0.4-5.4); Lymphocytes % (auto) 18.8 % (10.0-50.0); Mean Corpuscular Hemoglobin 23.8 pg (28.0-32.0); Mean Corpuscular Hgb Conc. 32.2 g/dL (32.0-36.0); Monocytes # (auto) 0.6 10 ^3/uL (0-1.3); Neutrophils # (auto) 4.4 10 ^3/uL (1.6-8.6); Platelet Count (auto) 178 10^3/uL (140-450); Red Blood Cells 3.93 10^6/uL (4.0-5.20); Red Cell Distribution Width 16.5 % (11.8-14.3); White Blood Cell 6.6 10^3/uL (4.4-10.8)
[2025-03-06 06:41] LABS: BUN/Creatinine Ratio 14.1 (10.0-20.0)
[2025-03-06] MEDS: ATENOLOL 25 MG TAB PO SCH (08:40)
[2025-03-06] MEDS: LISINOPRIL 5 MG TAB PO SCH (08:44)
--- NOTE | 2025-03-06 10:39 | DVHPN2 ---
Subjective Patient reports having abdominal pain, periumbilical area. Denies having any chest pain. Denies having any shortness of breath. Reviewed: Care Plan, H&P, Labs, Medications, Previous Orders Changes from previous H/P or p: No Changes General: Per HPI Eyes: No Pain, No Vision change, No Conjunctivae inflammation, No Eyelid inflammation, No Other, No Redness ENT: No Ear pain, No Ear discharge, No Nose pain, No Nose discharge, No Nose congestion, No Mouth pain, No Mouth swelling, No Throat pain, No Throat swelling, No Other Cardiovascular: No Chest Pain, No Palpitations, No Orthopnea, No Paroxysmal Noc. Dyspnea, No Edema, No Lt Headedness, No Other Respiratory: No Cough, No Dry, No Shortness of breath, No SOB with excertion, No Wheezing, No Hemoptysis, No Pleuritic Pain, No Sputum, No Other Gastrointestinal: Nausea, Vomiting, Abdominal Pain, Diarrhea; No Constipation, No Melena, No Hematochezia, No Other Genitourinary: No Dysuria, No Frequency, No Incontinence, No Hematuria, No Retention, No Other Musculoskeletal: No other, No neck pain, No shoulder pain, No arm pain, No back pain, No hand pain, No leg pain, No foot pain Skin: No Rash, No Lesions, No Jaundice, No Bruising, No Other Objective Vitals Vital Signs Date Time Temp Pulse Resp B/P (MAP) Pulse Ox O2 Delivery O2 Flow Rate FiO2 03/06/25 09:00 97.8 97 17 161/76 (104) 94 97.8 03/05/25 20:00 Nasal Cannula* 4 36 Intake/Output Intake and Output 03/06/25 07:00 Intake Total 1300 ml Output Total 1275 ml Balance 25 ml Intake Oral 200 ml IV Total 1100 ml Output Urine Total 1275 ml # Bowel Movements 1 General Appearance: Alert, Oriented X3, Cooperative, mild distress HEENT: Atraumatic, PERRLA Lungs: Clear to auscultation, Normal air movement Cardiovascular: Normal S1, Normal S2 Abdomen: Normal bowel sounds, Soft, No tenderness Neuro: Normal gait, Normal speech, Cranial nerves 3-12 NL Skin: Dry, Intact Psych/Mental Status: Mental status NL, Mood NL Medications Current Medications Medications Dose Ordered Sig/Sara Route Start Time Stop Time Status Last Admin Dose Admin Acetaminophen/ Hydrocodone Bitart 1 tab Q4HP PRN PO 03/02/25 11:00 Ondansetron HCl 4 mg Q4HP PRN IV 03/02/25 11:00 03/02/25 11:15 4 MG Acetaminophen 650 mg Q6HP PRN PO 03/02/25 11:00 03/05/25 18:54 650 MG Morphine Sulfate 2 mg Q4HPRN PRN IV 03/02/25 11:00 03/02/25 11:15 2 MG Nitroglycerin 0.4 mg Q5MINP PRN SL 03/02/25 11:00 Hold Morphine Sulfate 2 mg Q30M PRN IV 03/02/25 11:00 Metoclopramide HCl 10 mg Q6HPRN PRN IV 03/02/25 11:00 Hold Vancomycin HCl 0 ml @ 0 mls/hr UD IV 03/02/25 11:00 Cancel Atorvastatin Calcium 20 mg DAILY PO 03/03/25 10:00 03/05/25 09:16 20 MG Sildenafil Citrate 20 mg TID PO 03/02/25 14:00 03/06/25 05:46 20 MG Aspirin 81 mg DAILY PO 03/03/25 10:00 03/06/25 08:40 81 MG Sodium Bicarbonate 50 ml/ Sodium Chloride 1,050 ml @ 75 mls/hr Q14H IV 03/03/25 11:30 03/06/25 03:11 75 MLS/HR Enoxaparin Sodium 70 mg DAILY SC 03/04/25 10:00 Hold 03/04/25 10:58 70 MG Docusate Sodium 100 mg BID PO 03/03/25 22:00 03/05/25 20:53 100 MG Pantoprazole Sodium 40 mg DAILY IV 03/03/25 11:45 03/06/25 09:32 40 MG Meropenem 50 ml @ 17 mls/hr Q12HR IV 03/05/25 22:00 03/05/25 20:53 17 MLS/HR Atenolol 50 mg DAILY PO 03/06/25 10:00 03/06/25 08:40 50 MG Lisinopril 10 mg DAILY PO 03/06/25 10:00 Potassium Chloride/Sodium Chloride 1,000 ml @ 75 mls/hr [id number] IV 03/06/25 10:30 Laboratory Results Laboratory Tests 03/06/25 05:21 Chemistry Test 03/06/25 05:21 Calcium Level 9.3 mg/dL (8.7-10.4) Urinalysis Test 03/02/25 10:45 Urine Color [place] (Yellow) H Urine Clarity Turbid (Clear) H Urine pH 5.5 (5.0-9.0) Urine Specific [place] 1.024 (1.001-1.035) Urine Protein 1+ (Negative) H Urine Ketones Trace (Negative) Urine Blood Negative /uL (Negative) Urine Nitrite Negative (Negative) Urine Bilirubin Negative (Negative) Urine Urobilinogen 8 mg/dL (Negative) H Urine Leukocyte Esterase 2+ /uL (Negative) Urine RBC 5 /hpf (0 - 4) Urine Microscopic WBC 36 /HPF (0-5) H Urine Squamous Epithelial Cells Few /hpf (<5) Urine Bacteria Mod /hpf (None Seen) H Urine Glucose Normal mg/dL (Normal) Microbiology Microbiology Date/Time Source Procedure Growth Status 03/03/25 00:00 Stool Stool Culture - Final Complete 03/03/25 00:00 Stool Shiga Toxin I & II - Final Complete 03/03/25 00:00 Stool Clostridium difficile Toxin Assay - Final Complete 03/02/25 10:45 Voided Urine Urine Culture - Final Escherichia coli - ESBL Complete 03/02/25 05:54 Blood Blood Culture - Preliminary NO GROWTH AFTER 72 HOURS OF INCUBATION. Resulted Labs and/or images reviewed: Labs reviewed by me, Image(s) reviewed by me Assessment/Plan Assessment/Plan Impression: -NSTEMI, rule out type 1 -constipation -shock,? Cardiogenic versus septic -pulmonary hypertension -sepsis -constipation -primary hypertension -dyslipidemia -CKD stage IIIB -acute hypoxic respiratory failure Plan: Events: Patient for left heart catheterization. Positive ESBL in the urine. -change antibiotics to Merrem -urine and blood culture : Reviewed -cardiology consultation: Recommendations reviewed -echocardiogram: Results reviewed -stop bicarb drip. Renal function improved. -potassium replacement -Lovenox, therapeutic dose -PPI -unstable to transfer to [facility]. We will reassessed after left heart catheterization Repeat labs in a.m. Total time spent with patient discussing and formulating plan of care: 35 minutes. This medical document was created using an electronic medical record system with [employer] dictation system. Although this document has been carefully reviewed, there may still be some phonetic and typographical errors. These areas are purely typographical due to imperfections of the software programs, and do not reflect any compromise in the patient's medical care. Plan discussed with: Patient, Other (RN) My Orders Orders - MARNI EASTON NP Procedure Category Date Status Time Meropenem 1gm Ivpb PHA 03/05/25 In Process (Merrem 1gm/ Ns) 22:00 Insert Midline ORDERS 03/05/25 Transmitted 13:11 * Pulling Unit Floorhand CONS 03/05/25 Transmitted Consult Sod Chl 0.9%/ Kcl PHA 03/06/25 In Process 40meq 10:30 Date of Service: Mar 06, 2025 Billing Provider: MARNI EASTON NP Common Visit Codes: [id number] INP/OBS CARE(HIGH) MARNI EASTON NP Mar 06, 2025 10:39
[2025-03-06] MEDS: HEPARIN SODIUM (PORCINE) 5000 UNITS/ML 1ML VIAL ONE (12:27)
[2025-03-06] MEDS: ANGIOMAX 250 MG VIAL IV ONE (12:27)
[2025-03-06] MEDS: VERAPAMIL 2.5MG/ML INJ 2ML VIAL IV ONE (12:27)
[2025-03-06] MEDS: fentaNYL CITRATE 100 MCG/2 ML VL ONE (12:27)
[2025-03-06] MEDS: LIDOCAINE 2%HCL (LOCAL ANESTH.) INJ 10ml MDV ONE (12:28)
[2025-03-06] MEDS: SODIUM CHL 0.9% 0 ML ONE (12:28)
[2025-03-06] MEDS: MIDAZOLAM HCL 2MG/2ML 2ml VIAL (1mg/ml) ONE (12:28)
[2025-03-06] MEDS: hydrALAZINE HCL 20 MG/ML VL ONE (12:47)
[2025-03-06] MEDS: LIDOCAINE 2%HCL (LOCAL ANESTH.) INJ 20ML MDV ONE (12:57)
[2025-03-06] MEDS: SOD CHL 0.9%/ KCL 40MEQ 1,000 ML IV SCH (16:39)
--- NOTE | 2025-03-06 16:46 | DVHPNRES ---
Progress Note Date Seen: Mar 06, 2025 Resident Creating Document: ANNETTE MONACO RESIDENT Medical Necessity Reason Pt with a Central, PICC or Fol: No Subjective Review of Systems Patient seen and examined at bedside. Patient is alert and oriented to time, place person and responding to all questions. Continues experiencing nausea and abdominal pain. Objective vital signs Vital Sign Date Time Temp Pulse Resp B/P (MAP) Pulse Ox O2 Delivery O2 Flow Rate FiO2 03/06/25 16:00 89 17 118/61 (80) 95 03/06/25 14:56 98.1 98.1 03/06/25 08:00 Nasal Cannula* 4 36 Total Intake and Output 03/05/25 03/05/25 03/06/25 15:00 23:00 07:00 Intake Total 1300 ml Output Total 1275 ml Balance 25 ml medications Current Medications Medications Dose Ordered Sig/Sara Route Start Time Stop Time Status Last Admin Dose Admin Acetaminophen/ Hydrocodone Bitart 1 tab Q4HP PRN PO 03/02/25 11:00 Ondansetron HCl 4 mg Q4HP PRN IV 03/02/25 11:00 03/02/25 11:15 4 MG Acetaminophen 650 mg Q6HP PRN PO 03/02/25 11:00 03/05/25 18:54 650 MG Morphine Sulfate 2 mg Q4HPRN PRN IV 03/02/25 11:00 03/02/25 11:15 2 MG Nitroglycerin 0.4 mg Q5MINP PRN SL 03/02/25 11:00 Hold Morphine Sulfate 2 mg Q30M PRN IV 03/02/25 11:00 Metoclopramide HCl 10 mg Q6HPRN PRN IV 03/02/25 11:00 Hold Vancomycin HCl 0 ml @ 0 mls/hr UD IV 03/02/25 11:00 Cancel Atorvastatin Calcium 20 mg DAILY PO 03/03/25 10:00 03/05/25 09:16 20 MG Sildenafil Citrate 20 mg TID PO 03/02/25 14:00 03/06/25 05:46 20 MG Aspirin 81 mg DAILY PO 03/03/25 10:00 03/06/25 08:40 81 MG Sodium Bicarbonate 50 ml/ Sodium Chloride 1,050 ml @ 75 mls/hr Q14H IV 03/03/25 11:30 03/06/25 03:11 75 MLS/HR Enoxaparin Sodium 70 mg DAILY SC 03/04/25 10:00 Hold 03/04/25 10:58 70 MG Docusate Sodium 100 mg BID PO 03/03/25 22:00 03/05/25 20:53 100 MG Pantoprazole Sodium 40 mg DAILY IV 03/03/25 11:45 03/06/25 09:32 40 MG Meropenem 50 ml @ 17 mls/hr Q12HR IV 03/05/25 22:00 03/05/25 20:53 17 MLS/HR Atenolol 50 mg DAILY PO 03/06/25 10:00 03/06/25 08:40 50 MG Lisinopril 10 mg DAILY PO 03/06/25 10:00 Potassium Chloride/Sodium Chloride 1,000 ml @ 75 mls/hr [id number] IV 03/06/25 10:30 Examination General Appearance: Cooperative. Well developed. Well nourished. Dry mucous membranes Head Exam: Normal inspection Neck Exam: Normal inspection. Non-tender. Normal alignment Pulmonary/Respiratory: Chest non-tender. Clear bilateral breath sounds, no crackles, no wheezing. Cardiovascular/Chest: Regular rate and rhythm. Systolic murmur heard. No JVD. Peripheral Pulses: 2+ Radial (R). 2+ Radial (L). 2+ Pedal (R). 2+ Pedal (L) Abdominal Exam: Normal bowel sounds. Soft. normal abdomen, no visible veins, s evere tenderness to palpation No hepatospenomegaly. No masses Ankle Exam: Negative ankle edema Neuro/Mental Status: A&O x4. Coherent. Thoughts/Psych: Normal thought pattern. Appropriate mood and affect. Good judgement and insight Skin Exam: Normal inspection. Normal color. Warm. Dry. Bruising on right forearm laboratory and microbiology Laboratory Tests 03/06/25 05:21 Test 03/06/25 05:21 Range/Units Serum Glucose 96 74-106 mg/dL Microbiology Date/Time Source Procedure Growth Status 03/03/25 00:00 Stool Stool Culture - Final Complete 03/03/25 00:00 Stool Shiga Toxin I & II - Final Complete 03/03/25 00:00 Stool Clostridium difficile Toxin Assay - Final Complete 03/02/25 10:45 Voided Urine Urine Culture - Final Escherichia coli - ESBL Complete 03/02/25 05:54 Blood Blood Culture - Preliminary NO GROWTH AFTER 72 HOURS OF INCUBATION. Resulted Labs and/or images reviewed: Labs reviewed by me, Image(s) reviewed by me Problem List/Assessment/Plan Problem List/Assessment/Plan Aortic stenosis with aortic valve gradient 120 mmHg Significant septal hypertrophy with outflow tract obstruction concentric LVH NSTEMI likely type 2 due to above Sepsis likely due to colitis Dehydration Lactic acidosis Pulmonary hypertension NOEL likely hemodynamically mediated on questionable CKD Plan: Millicent score 134 RL 3, BNP 804 Echocardiogram: Significant septal hypertrophy and concentric LVH. Left atrial enlargement. Significant aortic sclerosis/stenosis with calcification of the aortic valve. Moderate to significant calcification of the posterior mitral leaflet and base of the posterior mitral leaflet. Left ventricular systolic performance is preserved. There is hyperdynamic ICT of septum and posterior wall. The four-chamber views reveal obstructive features. No evidence for systolic anterior motion of mitral leaflet. Significant gradient across the aortic valve at approximately 1:20 a.m. mmHg consistent with severe aortic stenosis, however how much is contributed by septal hypertrophy versus to valve stenosis uncertain. Mean gradient across the aortic valve is at least 65 mmHg. Moderate tricuspid regurgitation. Patient completed left heart catheterization preliminary results (see operative note) showed aortic stenosis with outflow tract obstruction, LAD lesion. Patient will benefit from TAVR, septal ablation and intravascular lithotripsy with LAD stenting. We recommend transfer to [place] once stable for the completion of above procedures Continue antibiotics Monitor blood pressure Thank you so much for the opportunity to consult on your patient. Cardiology team will follow the patient. In case of any questions or concerns please feel free to reach out. Plan discussed with Dr. Posey Plan discussed with: Patient, Other (RN) Dietary Evaluation Review Comments: 1) Advance diet as medically feasible 2) Ensure Enlive 240ml BID 3) Continue current POC Expected Outcomes/Goals: To meet >75% estimated needs Fu 2-3 days Visit Coding Cardiology RES Date of Service: Mar 06, 2025 Billing Provider: TANG POSEY Sr., MD Cardiology Common Codes: [id number] INP/OBS CARE (High) ANNETTE MONACO RESIDENT Mar 06, 2025 16:46
--- NOTE | 2025-03-06 17:09 | DVHOP2 ---
Operative Report - 2 Report Details Date: 03/06/25 Preop Diagnosis: Aortic stenosis Postop Diagnosis: CAD/aortic stenosis Surgeon: Tang Wang MD Anesthesiologist: Conscious sedation Anesthesia: Mac, Local Consent: The patient was informed of the risks and benefits of the procedure. These include but are not limited to complications of anesthesia, postoperative infection, incomplete relief of symptoms, recurrence of symptoms, damage to blood vessels, nerves and tendons, deep venous thrombosis, pulmonary embolism and possible need for repeat surgery in the future. Complications: No complications Findings: Aortic stenosis./CAD. Indications for Surgery: Chest pain Name of Procedure Performed Right and left heart catheterization. Bilateral cine coronary angiography. Left ventriculography. Procedure Details Procedure Details: Prior local anesthesia with 2% lidocaine to the right wrist and full informed consent obtained patient was prepped and draped in usual fashion followed by placement of a six Mozambican sheath into the radial artery with fluoroscopic and ultrasound guidance. We then placed a six [place] sheath into the femoral vein with ultrasound and fluoroscopic guidance as well. We then placed a Remington-Wicho catheter into the femoral vein and into the right atrium right ventricle pulmonary artery and capillary wedge pressure positions w here pressures were obtained and recorded. Through the arterial sheath we advanced six Mozambican Edward catheters to cannulate both right and left coronary ostia and a Cutler catheter was used for ventriculography with simultaneous transducer pressure readings. Hemodynamics: Right atrial pressure was approximately 12. Right ventricular pressure was 66/12. Pulmonary artery pressure was 60 over 23. There was a mean of 34. Capillary wedge pressure was approximately 13. Left ventricular pressure was 180 over 12. Pressure difference with dual transducers/peak to peak gradient of 94.5 mmHg. Cardiac output was 5.4 liters/minute. Aortic valve area calculated at 0.5 cm2. This is consistent with critical aortic stenosis. It is noteworthy to state that the patient was found to have obstructive cardiomyopathy with a positive Brockenbrough maneuver. It is difficult to determine the severity of true aortic stenosis given a calcified aortic valve and hypertrophic cardiomyopathy with obstructive features. Coronary anatomy: The RCA is a large dominant vessel with mild plaquing throughout. The PDA and posterolateral branches are normal. Left main is large and normal. Left anterior descending coronary artery is a large vessel. It is normal in its proximal portion however at its midportion there is a hazy eccentric lesion considered to be a proximally 95% stenosis involving the bifurcation of the diagonal vessel. The diagonal itself has a 95% stenosis as well. The circumflex is a large vessel with no stenosis in its proximal mid or distal segments. Ventriculography in the WELSH projection shows an EF of 90% with hypercontractility of the left ventricle. Impression: Normal left ventricular end-diastolic pressure at rest. Severe aortic stenosis/obstructive cardiomyopathy with a calcified aortic valve and obstructive features from obstructive cardiomyopathy. Single-vessel coronary artery disease of significant severity involving the LAD and diagonal vessels. Recommendations: Patient will be transferred to [facility] for TAVR and possible ablation for the treatment of aortic stenosis and hypertrophic cardiomyopathy. Possible intravascular lithotripsy of LAD and diagonal vessel. Stenting of the LAD and diagonal vessels. Patient is at high-risk for PTCA and stenting prior TAVR and/or ablation.. Condition Guarded Disposition Acute Care Facility Date of Service: Mar 06, 2025 Billing Provider: TANG WANG Sr., MD Cardiology Common Codes: 80107-CHKJHKQ INP/OBS CARE (High), PROCEDURE ONLY, CONSULT ONLY Cardiology Procedure Codes: 80604-APFE HEART CATH W/INTRA INJ, 01467-V/R & L HEART CATH FOR LVG, 45556-JMP & PLCMT OF FLOW DIR CATH TANG WANG Sr., MD Mar 06, 2025 17:09
--- NOTE | 2025-03-07 08:58 | DVHDS2 ---
Discharge Summary Date of Admission Mar 02, 2025 at 10:55 Date of Discharge: Mar 06, 2025 Admitting Diagnosis Sepsis Labs/Diagnostic Data: Laboratory Results Test 03/06/25 05:21 03/05/25 07:18 03/04/25 04:41 03/03/25 07:26 White Blood Count 6.6 10^3/uL (4.4-10.8) Red Blood Count 3.93 10^6/uL (4.0-5.20) Hemoglobin 9.4 g/dL (12.2-16.2) Hematocrit 29.1 % (36.0-46.0) Mean Corpuscular Volume 74.0 fL (80.0-100.0) Mean Corpuscular Hemoglobin 23.8 pg (28.0-32.0) Mean Corpuscular Hemoglobin Concent 32.2 g/dL (32.0-36.0) Red Cell Distribution Width 16.5 % (11.8-14.3) Platelet Count 178 10^3/uL (140-450) Mean Platelet Volume 8.1 fL (6.9-10.8) Neutrophils (%) (Auto) 67.0 % (37.0-80.0) Lymphocytes (%) (Auto) 18.8 % (10.0-50.0) Monocytes (%) (Auto) 9.0 % (0.0-12.0) Eosinophils (%) (Auto) 4.7 % (0.0-7.0) Basophils (%) (Auto) 0.5 % (0.0-2.0) Neutrophils # (Auto) 4.4 10 ^3/uL (1.6-8.6) Lymphocytes # (Auto) 1.2 10 ^3/uL (0.4-5.4) Monocytes # (Auto) 0.6 10 ^3/uL (0-1.3) Eosinophils # (Auto) 0.3 10 ^3/uL (0-0.8) Basophils # (Auto) 0 10 ^3/uL (0-0.2) Nucleated Red Blood Cells 0.0 % Sodium Level 143 mmol/L (136-145) Potassium Level 3.4 mmol/L (3.5-5.1) Chloride Level 110 mmol/L (98-107) Carbon Dioxide Level 23 mmol/L (20-31) Anion Gap 10 (5-15) Blood Urea Nitrogen 12 mg/dL (9-23) Creatinine 0.85 mg/dL (0.550-1.02) Glomerular Filtration Rate Calc 69 mL/min (>90) BUN/Creatinine Ratio 14.1 (10.0-20.0) Serum Glucose 96 mg/dL (74-106) Calcium Level 9.3 mg/dL (8.7-10.4) Prothrombin Time 10.6 sec (9.3-11.8) Prothrombin Time INR 1.00 (0.9-1.15) Activated Partial Thromboplast Time 31.3 SEC (24.5-34.5) Troponin I High Sensitivity 485 ng/L (</=34) Total Bilirubin 1.0 mg/dL (0.2-1.0) Aspartate Amino Transferase (AST) 41 U/L (<34) Alanine Aminotransferase (ALT) 12 U/L (7-40) Alkaline Phosphatase 235 U/L (46-116) Total Protein 5.9 g/dL (5.7-8.2) Albumin 3.2 g/dL (3.2-4.8) Random Vancomycin Level 8.5 ug/mL (5-10) Test 03/02/25 13:33 03/02/25 12:52 03/02/25 12:40 03/02/25 10:45 Lactic Acid Level 1.5 mmol/L (0.4-2.0) B-Type Natriuretic Peptide 804.62 pg/mL (0-100) Hemoglobin A1c 5.9 % A1C (<5.7) Stool for White Cells None seen Urine Color Bonita (Yellow) Urine Clarity Turbid (Clear) Urine pH 5.5 (5.0-9.0) Urine Specific Revere 1.024 (1.001-1.035) Urine Protein 1+ (Negative) Urine Ketones Trace (Negative) Urine Blood Negative /uL (Negative) Urine Nitrite Negative (Negative) Urine Bilirubin Negative (Negative) Urine Urobilinogen 8 mg/dL (Negative) Urine Leukocyte Esterase 2+ /uL (Negative) Urine RBC 5 /hpf (0 - 4) Urine Microscopic WBC 36 /HPF (0-5) Urine Squamous Epithelial Cells Few /hpf (<5) Urine Bacteria Mod /hpf (None Seen) Urine Glucose Normal mg/dL (Normal) Test 03/02/25 08:54 03/02/25 07:34 03/02/25 05:54 Thyroid Stimulating Hormone (TSH) 2.94 uIU/mL (0.55-4.78) Triglycerides Level 64 mg/dL (< 150) Cholesterol Level 103 mg/dL (< 200) LDL Cholesterol 45 mg/dL (< 100) HDL Cholesterol 43 mg/dL (40-59) Differential Total Cells Counted 100.0 (100) Neutrophils % (Manual) 93 (37.0-80.0) Band Neutrophils % (Manual) 1 Lymphocytes % (Manual) 5 (10.0-50.0) Monocytes % (Manual) 1 (0-12) Eosinophils % (Manual) 0 (0-7) Basophils % (Manual) 0 (0.0-2.0) Metamyelocytes % (manual) 0 Myelocytes % (Manual) 0 Promyelocytes % (Manual) 0 Blast Cells % (Manual) 0 Reactive Lymphocytes 0 Platelet Estimate Adequate Hypochromasia (manual) Slight Microcytosis Slight Lipase 78 U/L (12-53) Other Laboratory Tests 03/06/25 05:21 Brief Hx & Hospital Course: Leeanna Pringle is an 79-year-old female with past medial history of hypertension, hyperlipidemia, GERD, asthma, pulmonary hypertension, and chronic kidney disease who came to the hospital for intractable nausea, vomiting, and diarrhea. Patient states yesterday she last ate when she went with her daughter to [employer] for dinner. 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 While in the ER she was found to have elevated troponin, lactic acidosis, and hypotension. Patient denies any chest pain or shortness of breath. Patient will be admitted for further treatment. Course of hospitalization Patient was started on sodium bicarbonate infusion, empiric antibiotic therapy which was switched to Merrem panel once patient's urine culture was found to be positive for E coli/ESBL. Cardiology consultation was obtained. Patient underwent left heart catheterization yesterday as well as assessment of aortic stenosis via the LV-gram. Patient was noted to have severe aortic stenosis as well as high-grade lesions to LAD and diagonal. Recommendations by Cardiology was to be transferred to tertiary care facility for evaluation of TAVR as well as coronary intervention. Patient was transferred to [facility] yesterday evening. Physical examination General: Alert and Oriented x3. No acute distress. Well-nourished. Eyes: EOMI. Anicteric. HENT: Moist mucous membranes. Lungs: Clear to auscultation bilaterally. No accessory muscle use. Cardiovascular: Regular rate and rhythm. No murmur. No JVD. Abdomen: Soft, non-tender and non-distended. No palpable masses. Extremities: No edema. Non-tender. Skin: No rashes or lesions. Warm. Neurologic: No focal neurological deficits. CN II-XII grossly intact, but not individually tested. Psychiatric: Cooperative. Appropriate mood and affect. Total time spent with patient discussing and formulating plan of care: 35 minutes. This medical document was created using an electronic medical record system with [employer] system. Although this document has been carefully reviewed, there may still be some phonetic and typographical errors. These areas are purely typographical due to imperfections of the software programs, and do not reflect any compromise in the patient's medical care. Consults/Reason for consult Cardiology: NSTEMI Operations or Procedures 03/06/25: Left heart catheterization Condition at Discharge: Guarded Final Diagnosis/Problems List -NSTEMI, ruled out type 1, type 2 secondary to sepsis and severe aortic stenosis -constipation -shock,? Cardiogenic versus septic -pulmonary hypertension -sepsis -constipation -primary hypertension -dyslipidemia -CKD stage IIIB -acute hypoxic respiratory failure Discharge Disposition: Acute Care Facility Discharge Instruct/Medications Diet: Cardiac 2g Na,low cholest Activity: Light activity 36 Discharge Statement: "Patient was advised to return to the ER or call 911 if any headaches, dizziness, shortness of breath, chest pain, abdominal pain, bleeding, fevers, or worsening of medical condition. Patient was counseled about treatment plan, medications, possible side effects, patientverbalized understanding. All questions were answered to the best of my ability. This discharge took greater then 30 minutes in planning, reviewing documentation, counseling the patient, and discussing with other team members." ASSESSMENT ASSESSMENT Assessment -NSTEMI, rule out type 1 -constipation -shock,? Cardiogenic versus septic -pulmonary hypertension -sepsis -constipation -primary hypertension -dyslipidemia -CKD stage IIIB -acute hypoxic respiratory failure Date of Service: Mar 07, 2025 Billing Provider: MARNI EASTON NP Common Visit Codes: 22212-GJF/OBS DISCH DAY >30min MARNI EASTON C.O.D. AUDIT CLERK Mar 07, 2025 08:58
== END 2025-03-07 00:40 | disposition short-term general hospital (02) | DRG 871 ==
LOC: EDBD 04:29 → ER 04:29 → OVERFLOW 10:55 → TELE-WESTW 18:33 → EAST 03-05 14:26
PROVIDERS: ADMIT Nurse Practitioner Acute Care; ATTEND Nurse Practitioner Acute Care
PROC: 4A023N8 Measurement of Cardiac Sampling and Pressure, Bilateral, Percutaneous Approach (ICD-10-PCS; principal; 2025-03-06)
PROC: B2111ZZ Fluoroscopy of Multiple Coronary Arteries using Low Osmolar Contrast (ICD-10-PCS; 2025-03-06)
PROC: B2151ZZ Fluoroscopy of Left Heart using Low Osmolar Contrast (ICD-10-PCS; 2025-03-06)
DX: A41.51 Sepsis due to Escherichia coli [E. coli] (principal); I21.A1 Myocardial infarction type 2; R57.0 Cardiogenic shock; R65.21 Severe sepsis with septic shock; J96.01 Acute respiratory failure with hypoxia; E87.20 Acidosis, unspecified; I42.9 Cardiomyopathy, unspecified; N17.9 Acute kidney failure, unspecified; N39.0 Urinary tract infection, site not specified; I27.20 Pulmonary hypertension, unspecified; I35.0 Nonrheumatic aortic (valve) stenosis; I12.9 Hypertensive chronic kidney disease with stage 1 through stage 4 chronic kidney disease, or unspecified chronic kidney disease; I35.8 Other nonrheumatic aortic valve disorders; J45.909 Unspecified asthma, uncomplicated; N18.32 Chronic kidney disease, stage 3b; E78.5 Hyperlipidemia, unspecified; K59.00 Constipation, unspecified; K57.30 Diverticulosis of large intestine without perforation or abscess without bleeding; N20.0 Calculus of kidney; K52.9 Noninfective gastroenteritis and colitis, unspecified; E86.0 Dehydration; I25.10 Atherosclerotic heart disease of native coronary artery without angina pectoris; K21.9 Gastro-esophageal reflux disease without esophagitis; K44.9 Diaphragmatic hernia without obstruction or gangrene; M47.816 Spondylosis without myelopathy or radiculopathy, lumbar region; R73.9 Hyperglycemia, unspecified; Z88.2 Allergy status to sulfonamides
CPT/HCPCS: 36415; 71045; 74176; 80048; 80053; 80061; 80202; 81001; 83036; 83605; 83690; 83880; 84443; 84484; 85007; 85025; 85027; 85048; 85610; 85730; 87040; 87045; 87086; 87088; 87177; 87186; 87427; 87493; 93005; 93306; 93460; 96365; 96375; 99152; 99291; 99292; G0378; J0692; J2003; J2185; J2250; J2405; J2470; J3490; Q9967